=== PATIENT | female | born 1980 | race Caucasian/White ===

== ENCOUNTER 2017-06-25 10:22 | Emergency (ER) | payer BC, OTHER ==
[~2017-06-25] VITALS: Ht 165.1 cm; Wt 72.6 kg
[2017-06-25] MEDS ORDERED: AMOXICILLIN250 MG PO (13:16)
== END 2017-06-25 13:23 | disposition home or self-care (01) ==
LOC: ER 10:22
DX: B00.2 Herpesviral gingivostomatitis and pharyngotonsillitis (principal); F17.210 Nicotine dependence, cigarettes, uncomplicated
CPT/HCPCS: 99282

== ENCOUNTER 2018-03-05 05:51 | Emergency (ER) | payer BC ==
[~2018-03-05] VITALS: Ht 165.1 cm; Wt 68.0 kg
[~2018-03-05 05:51] MED LIST: AMOXICILLIN250 MG PO
[2018-03-05] MEDS ORDERED: FAMOTIDINE 20 MG/2 ML VIAL IV STA (06:12)
[2018-03-05] MEDS ORDERED: ONDANSETRON HCL INJ 2 MG/ML VIAL IV STA (06:12)
[2018-03-05] MEDS ORDERED: SODIUM CHLORIDE 0.9% 1000ML 1,000 ML IV ONE (06:15)
[2018-03-05] MEDS ORDERED: XANAX0.25 MG PO (07:32)
[2018-03-05] MEDS ORDERED: AMBIEN10 MG PO (07:32)
[2018-03-05] MEDS ORDERED: NORCO 10-325 T1 EACH PO (07:32)
[2018-03-05] MEDS ORDERED: METOCLOPRAMIDE HCL 10 MG/2ML VIAL IV ONE (07:45)
--- NOTE | 2018-03-05 09:22 | Diagnostic Imaging Report ---
EXAMINATION: CT of the abdomen and pelvis with contrast. TECHNIQUE: Spiral CT images of the abdomen and pelvis were performed from the lung bases to the lesser trochanters after the intravenous administration of 96 cc of Isovue 300. Coronal and sagittal reformatted images were obtained. Dose reduction parameters were utilized. DLP: 434.81 mGy-cm COMPARISON: None. CLINICAL HISTORY:Nausea and vomiting DISCUSSION: ABDOMEN/PELVIS: LOWER THORAX:Unremarkable. HEPATOBILIARY: There is fatty infiltration of the liver. No focal hepatic lesions. No intra-or extrahepatic biliary ductal dilation. The gallbladder is absent. SPLEEN: No splenomegaly. PANCREAS: No focal masses or ductal dilatation. ADRENALS: No adrenal nodules. KIDNEYS/URETERS: No hydronephrosis, stones or solid mass lesions. PELVIC ORGANS/BLADDER: The bladder is normal. There are pelvic phleboliths. PERITONEUM/RETROPERITONEUM: No free air or fluid. LYMPH NODES: No intra-abdominal, retroperitoneal, pelvic or inguinal lymphadenopathy. VESSELS: The celiac trunk,superior and inferior mesenteric and bilateral renal arteries are patent. The portal, superior mesenteric and splenic veins are patent. GI TRACT: No distention or wall thickening. BONES AND SOFT TISSUE: No bony destructive lesions. Postoperative changes at L5-S1 with a laminectomy, disc spacer and interpedicular screws/rods. No soft tissue abnormalities. IMPRESSION: 1. No acute abdominal or pelvic abnormality. 2. Diffuse hepatic steatosis without focal abnormality. Signed by: Dr. Rashel Chanel DO on 03/05/2018 9:11 AM
[2018-03-05] MEDS ORDERED: ZOFRAN ODT4 MG PO ×2 (09:34→10:44)
[2018-03-05] MEDS ORDERED: PROMETHAZINE 12.5MG/ NACL 0.9% 12.5 MG/50 ML BAG IV ONE (09:45)
[2018-03-05] MEDS ORDERED: PROMETHAZINE HCL (IM) 25 MG/ML VIAL IM ONE (10:00)
[2018-03-05] MEDS ORDERED: SODIUM CHLORIDE 0.9% 1000ML 1,000 ML IV SCH (10:00)
[2018-03-05] MEDS ORDERED: CLONIDINE HCL 0.1 MG TAB PO ONE (10:15)
--- NOTE | 2018-03-05 12:25 | Diagnostic Imaging Report ---
EXAMINATION: Head CT HISTORY: Headache for the last day, nausea and vomiting, hypertension COMPARISON: None. TECHNIQUE: Multidetector axial images were obtained without contrast from the foramen magnum to the vertex . The images were reconstructed using brain and bone algorithms. Thin section brain images were reformatted into coronal and sagittal planes. Intravenous contrast: None. Image quality: Motion/streaking artifact limits the evaluation of the skull base and posterior cranial fossa. Dose modulation, iterative reconstruction, and/or weight based adjustment of the mA/kV was utilized to reduce the radiation dose to as low as reasonably achievable. FINDINGS: Parenchyma: 1. No abnormal densities. 2. No mass or hemorrhage. No CT evidence of acute territorial vascular insult. Extra-axial spaces:No abnormal density. No extra-axial fluid collections Brain sulci: Mildly prominent for age. Ventricles: No hydrocephalus or displacement. Arteries: No density suggestive of thrombus. Dural sinuses: No abnormal density. Extra-axial spaces: No abnormal density. Foramen magnum: No mass, Chiari malformation, or basilar invagination. Sella: No obvious mass. Paranasal/mastoid sinuses: Imaged portions unremarkable. Skull/Scalp: No lytic or blastic lesions. No fractures. IMPRESSION: No acute intracranial abnormalities, particularly no mass, hydrocephalus or hemorrhage. Signed by: Dr. Patricia Ribeiro M.D. on 03/05/2018 12:21 PM
[2018-03-05] MEDS ORDERED: PROMETHAZINE HC25 M1 PO (12:40)
[2018-03-05 13:00] VITALS: BP 118/78
== END 2018-03-05 13:02 | disposition home or self-care (01) ==
LOC: FSED 05:51
DX: R11.2 Nausea with vomiting, unspecified (principal); E87.6 Hypokalemia; K52.9 Noninfective gastroenteritis and colitis, unspecified; D72.829 Elevated white blood cell count, unspecified; I10 Essential (primary) hypertension
CPT/HCPCS: 70450; 74177; 80053; 80076; 81003; 81025; 85025; 96372; 96374; 96375; 99284; J2405; J2550; J2765; J7030

== ENCOUNTER 2020-03-31 06:47 | Emergency (ER) | payer BC, OTHER ==
[~2020-03-31] VITALS: Ht 165.1 cm; Wt 72.6 kg
[~2020-03-31 06:47] MED LIST changes: +AMBIEN10 MG PO; +NORCO 10-325 T1 EACH PO; +PROMETHAZINE HC25 M1 PO; +XANAX0.25 MG PO; +ZOFRAN ODT4 MG PO
[2020-03-31] MEDS ORDERED: KETOROLAC TROMETHAMINE 30 MG/ML VIAL IM STA (07:33)
[2020-03-31] MEDS ORDERED: KETOROLAC TROMETHAMINE 30 MG/ML VIAL ONE (08:17)
--- NOTE | 2020-03-31 08:31 | Diagnostic Imaging Report ---
EXAM: CT Chest WITHOUT intravenous contrast 03/31/2020 7:56 AM INDICATION: Fall COMPARISON: None TECHNIQUE: Chest was scanned utilizing a multidetector helical scanner from the lung apex through the level of the adrenal glands without administration of IV contrast. Coronal and sagittal reformations were obtained. Routine protocol was performed. IV CONTRAST: None RADIATION DOSE: Total DLP: 585 mGy*cm. Dose modulation, iterative reconstruction, and/or weight based adjustment of the mA/kV was utilized to reduce the radiation dose to as low as reasonably achievable. COMPLICATIONS: None FINDINGS: LINES/ TUBES: None. LUNGS AND AIRWAYS: The central airways are patent. No focal consolidation or pulmonary edema. Minimal right and left lower lobe dependent subsegmental atelectasis. No suspicious pulmonary nodules. PLEURA: The pleural spaces are clear. HEART AND MEDIASTINUM: The thyroid gland is normal. No mediastinal, hilar or axillary lymphadenopathy. The heart is normal in size.. There is no pericardial effusion. UPPER ABDOMEN: No acute findings in the upper abdomen. Status post cholecystectomy. BONES: No acute osseous injury. No suspicious lytic or blastic lesions. SOFT TISSUES: Soft tissue irregularity at the right inframammary lateral thoracic soft tissues with associated subcutaneous fat stranding. 7 mm subcutaneous soft tissue nodule overlying the sternum, likely a sebaceous cyst. IMPRESSION: No acute traumatic thoracic injury. Soft tissue irregularity at the right inframammary anterolateral thoracic soft tissues with associated subcutaneous fat stranding. Please correlate with physical exam findings. Signed by: Awais Lee MD on 03/31/2020 8:28 AM
--- NOTE | 2020-03-31 08:33 | Diagnostic Imaging Report ---
Exams: Head and maxillofacial CTs without IV contrast History: Trauma Comparison studies: Head CT 03/05/2018 Technique: Axial images were obtained to the vertex and maxillofacial region. Coronal and sagittal images reconstructed from the axial data. Dose modulation, iterative reconstruction, and/or weight based adjustment of the mA/kV was utilized to reduce the radiation dose to as low as reasonably achievable. Intravenous contrast: None Findings: Scalp: No abnormalities. Bones: No fractures, blastic or lytic lesions. Brain sulci: Appropriate for age. Ventricles: Normal in size and configuration. No hydrocephalus. Parenchyma: Normal no densities. No masses, hemorrhage, acute or chronic vascular insults. Sellar/suprasellar region: No abnormalities Craniocervical junction: Patent foramen magnum. No Chiari one malformation. Maxillofacial CT: Soft tissues: Soft tissue swelling with soft tissue defect consistent with laceration in the anterior chin. No retained hyperdense foreign body. Unchanged incidental focal linear scarring in the right lateral in the right lateral periorbital/anterior previous traumatic soft tissues. Bones: No fractures or bony abnormalities. Orbits: Globes: Intact Extra or intraconal abnormalities: None. Paranasal sinuses: Clear Incidental findings: Right upper lip piercing with [address]. Foreign body in the intradural cavity can be correlated with direct visualization (prior oral tongue piercing with nonmetallic barbel?). IMPRESSION: Head CT: 1. No acute abnormalities 2. No changes from the prior head CT on 02/25/[address]: 1. Midline chin laceration with regional soft tissue swelling. 2. No retained hyperdense foreign body or fracture. Signed by: Dr. René Marte M.D. on 03/31/2020 8:30 AM
[2020-03-31] MEDS ORDERED: TETANUS/DIPHTHERIA TOX ADULT 0.5 ML SYR ONE (08:43)
[2020-03-31] MEDS ORDERED: TETANUS/DIPHTHERIA TOX ADULT 0.5 ML SYR IM ONE (08:45)
--- NOTE | 2020-03-31 09:29 | Emergency Department Note ---
History of Present Illnes History of Present Illness Chief Complaint: General Medicine Complaints History of Present Illness This is a 39 year old female Chief Complaint Comment REPORTS SHE FELL 3 DIFFERENT TIMES SINCE LAST NIGHT. CAN'T REMEMBER FALLS. SAYS SHE HAS A CUT ON HER CHIN (COVERED W/ BANDAID) AND HER STERNUM IS RED BUT SHE CAN'T RECALL IF SHE HIT ANYTHING. TOOK A HYDROCODONE 10/325 FOR HER CHRONIC BACK PAIN @ 0300. [employer] ATIF DROVE HERSELF HERE . Historian: Patient Arrival Mode: Car Onset (how long ago): day(s) (1) Location: head and chest Quality: sharp Radiation: Denies non-radiation, Denies back, Denies neck, Denies extremity, Denies abdomen, Denies periumbilical, Denies flank, Denies proximal, Denies distal, Denies other Severity: moderate Onset quality: gradual Duration (how long): day(s) (1) Timing of current episode: constant Progression: unchanged Chronicity: new Context: Denies recent illness, Denies recent surgery, Denies recent immobilization, Denies recent travel, Denies trauma/injury, Denies new medicatio ns, Denies hx of DVT/PE, Denies non-compliance w/ medications, Denies other Relieving factors: none Exacerbating factors: none Associated symptoms: Reports chest pain, Reports headaches; Denies denies other symptoms, Denies confusion, Denies cough, Denies diaphoresis, Denies fever/chills, Denies loss of appetite, Denies malaise, Denies nausea/vomiting, Denies rash, Denies seizure, Denies shortness of breath, Denies syncope, Denies weakness, Denies other Treatments prior to arrival: none Past Medical/Family History Physician Review I have reviewed the patient's past medical and family history. Any updates have been documented here. Past Medical History Recent Fever: No Clinical Suspicion of Infectio: No New/Unexplained Change in Ment: No Past Medical History: Hypertension, Anxiety, Depression, Chronic Back Pain Past Surgical History: Cholecysctectomy Other Surgery: back sx neck sx HAND SX WRIST SX Social History Smoking Cessation: Current some day smoker Alcohol Use: Occasional Any Illegal Drug Use: No Other Last Tetanus: unknown Any Pre-Existing Lines (PICC,: No Review of Systems Review of Systems Constitutional: Reports as per HPI EENTM: Reports no symptoms Cardiovascular: Reports as per HPI Respiratory: Reports no symptoms Gastrointestinal: Reports no symptoms Genitourinary: Reports no symptoms Musculoskeletal: Reports no symptoms Integumentary: Reports as per HPI Neurological: Reports as per HPI, Reports headache Psychological: Reports no symptoms Endocrine: Reports no symptoms Hematological/Lymphatic: Reports no symptoms Physical Exam Related Data Allergies: Coded Allergies: No Known Allergies (Unverified , 06/25/17) Triage Vital Signs Vital Signs Date Time Temp Pulse Resp B/P (MAP) Pulse Ox O2 Delivery O2 Flow Rate FiO2 03/31/20 07:15 98.0 99 16 136/87 100 Room Air Vital signs reviewed: Yes Physical Exam CONSTITUTIONAL Constitutional: Present well-developed, Present well-nourished HENT HENT: Present normocephalic, Present oropharynx clear/moist, Present nose normal, Present other (chin laceation) HENT L/R: Present left ext ear normal, Present right ext ear normal EYES Eyes: Reports PERRL, Reports conjunctivae normal NECK Neck: Present ROM normal PULMONARY Pulmonary: Present effort normal, Present breath sounds normal CARDIOVASCULAR Cardiovascular: Present regular rhythm, Present heart sounds normal, Present capillary refill normal, Present normal rate, Present other (chest wall tenderness) GASTROINTESTINAL Abdominal: Present soft, Present nontender, Present bowel sounds normal GENITOURINARY Genitourinary: Present exam deferred SKIN Skin: Present warm, Present dry, Present other (chin laceration) MUSCULOSKELETAL Musculoskeletal: Present ROM normal NEUROLOGICAL Neurological: Present alert, Present oriented x 3, Present no gross motor or sensory deficits PSYCHOLOGICAL Psychological: Present mood/affect normal, Present judgement normal Results Laboratory Lab results reviewed: Yes Imaging Imaging results reviewed: Yes Procedures 12 Lead ECG Interpretation ECG Interpretation : ECG: ECG 1 Date: Mar 31, 2020 Time: 08:39 Rhythm: sinus tachycardia Rate: normal BPM: 105 QRS axis: normal ST segments normal: Yes T waves normal: Yes Clinical Impression: abnormal ECG Laceration Laceration: Laceration 1 Site: face Side: left Size (cm): 5 Description: linear Depth: simple, single layer Local anesthesia: lidocaine 1% Amount of anesthesia (mL): 10 Pre-repair: wound exposed Skin layer closed with: nylon Size (cm): 5-0 Number of sutures: 5 Assessment & Plan Medical Decision Making MDM head bleed stenum fx Reassessment Reassessment better pain improved Assessment & Plan Final Impression: (1) Head injury (2) Facial laceration (3) Traumatic injury of chest wall Depart Disposition: HOME, SELF-CARE Last Vital Signs Date Time Temp Pulse Resp B/P (MAP) Pulse Ox O2 Delivery O2 Flow Rate FiO2 03/31/20 07:15 98.0 99 16 136/87 100 Room Air Home Meds Active Scripts Promethazine Hcl (PROMETHAZINE HCL) 25 Mg Tablet, 25 MG PO Q4HR PRN for NAUSEA AND VOMITING, #12 TAB Prov:GRECIA JOSEPH MD 03/05/18 Reported Medications Alprazolam (XANAX) 0.25 Mg Tablet, 1 TAB PO PRN PRN for ANXIETY 03/05/18 Zolpidem Tartrate (AMBIEN) 10 Mg Tablet, 10 MG PO HS PRN for PAIN, #30 TAB 03/05/18 Hydrocodone Bit/Acetaminophen (NORCO 10-325 TABLET) 1 Each Tablet, 1 TAB PO PRN PRN for PAIN 03/05/18 Amoxicillin (AMOXICILLIN) 250 Mg Capsule, 500 MG PO BID for 10 Days, #30 CAP 06/25/17 Medications in the ED Ketorolac Tromethamine 30 mg ONCE STAT IM Last administered on 03/31/20at 08:10; Admin Dose 30 MG; Start 03/31/20 at 07:33; Stop 03/31/20 at 07:40; Status DC Ketorolac Tromethamine 30 mg STK-MED ONCE .ROUTE ; Start 03/31/20 at 08:17; Stop 03/31/20 at 08:13; Status DC Tetanus/ Diphtheria Toxoids 0.5 ml ONCE ONCE IM Last administered on 03/31/20at 08:50; Admin Dose 0.5 ML; Start 03/31/20 at 08:45; Stop 03/31/20 at 08:46; Status DC Tetanus/ Diphtheria Toxoids 0.5 ml STK-MED ONCE .ROUTE ; Start 03/31/20 at 08:43; Stop 03/31/20 at 08:38; Status DC BÁRBARA BUSTILLOS MD Mar 31, 2020 09:29
[2020-03-31] MEDS ORDERED: CYCLOBENZAPRINE5 MG PO (09:38)
[2020-03-31] MEDS ORDERED: KEFLEX500 MG PO (09:38)
== END 2020-03-31 09:50 | disposition home or self-care (01) ==
LOC: FSED 07:37
DX: S01.81XA Laceration without foreign body of other part of head, initial encounter (principal); W18.30XA Fall on same level, unspecified, initial encounter; R94.31 Abnormal electrocardiogram [ECG] [EKG]; I10 Essential (primary) hypertension; F41.9 Anxiety disorder, unspecified; M54.9 Dorsalgia, unspecified; G89.29 Other chronic pain; F17.200 Nicotine dependence, unspecified, uncomplicated
CPT/HCPCS: 12013; 70450; 70486; 71250; 80053; 85025; 90471; 90714; 93005; 99284; J1885

== ENCOUNTER 2020-03-31 15:10 | Observation (INO) | payer OTHER ==
[~2020-03-31] VITALS: Ht 165.1 cm; Wt 72.6 kg
[~2020-03-31 15:10] MED LIST changes: +CYCLOBENZAPRINE5 MG PO; +KEFLEX500 MG PO
[2020-03-31] MEDS ORDERED: PANTOPRAZOLE 40 MG 10ML VIAL IV STA (16:00)
[2020-03-31] MEDS ORDERED: SODIUM CHLORIDE 0.9% 1000ML 1,000 ML IV STA ×2 (16:00→17:22)
[2020-03-31 16:11] LABS: BASOPHILS # (AUTO) 0.1 (0.0-0.1); BASOPHILS % 0.5 % (0.0-1.0); EOSINOPHILS # (AUTO) 0.1 (0.0-0.4); HEMATOCRIT 38.3 % (34.2-44.1); LYMPHOCYTES # (AUTO) 3.7 (1.0-3.2); LYMPHOCYTES % 36.2 % (18.0-39.1); MEAN CORPUSCULAR HEMOGLOBIN 31.9 pg (28-32); MEAN CORPUSCULAR HGB CONC 33.9 g/dL (31-35); MEAN CORPUSCULAR VOLUME 94.1 fL (81-99); NEUTROPHILS # (AUTO) 5.3 (2.1-6.9); PLATELET COUNT 409 x10e3/uL (140-360); RED BLOOD COUNT 4.07 x10e6/uL (3.6-5.1)
[2020-03-31 16:26] LABS: INR 0.93; PROTHROMBIN TIME 12.9 seconds (11.9-14.5)
[2020-03-31 16:27] LABS: PARTIAL THROMBOPLASTIN TIME 27.4 seconds (23.8-35.5)
[2020-03-31 16:37] LABS: ALBUMIN 4.9 g/dL (3.5-5.0); ALBUMIN/GLOBULIN RATIO 1.3 (0.8-2.0); CREATININE, SERUM 1.28 mg/dL (0.57-1.11); MAGNESIUM 1.4 MG/DL (1.3-2.1)
[2020-03-31 16:52] LABS: SALICYLATE < 5.0 mg/dL (0-30)
[2020-03-31 17:12] LABS: BILIRUBIN,URINE SMALL (NEGATIVE); CLARITY,URINE SL CLOUDY (CLEAR); COLOR,URINE YELLOW (YELLOW); KETONES,URINE TRACE (NEGATIVE); LEUKOCYTE ESTERASE ,URINE NEGATIVE (NEGATIVE); NITRITE,URINE NEGATIVE (NEGATIVE); PROTEIN,URINE DIPSTICK TRACE (NEGATIVE); URINE UROBILINOGEN 0.2 mg/dL (0.2 - 1)
[2020-03-31 17:13] LABS: AMPHETAMINES SCREEN,URINE POSITIVE (NEGATIVE); BENZODIAZEPINES SCREEN,URINE POSITIVE (NEGATIVE); PHENCYCLIDINE SCREEN,URINE NEGATIVE (NEGATIVE)
[2020-03-31 17:21] LABS: BACTERIA,URINE RARE /HPF; EPITHELIAL CELLS,URINE FEW /LPF; MUCUS,URINE FEW (RARE); RBC,URINE 0-5 /HPF (0-5); WBC,URINE (MAN) 0-5 /HPF (0-5)
[2020-03-31] MEDS ORDERED: KETOROLAC TROMETHAMINE 30 MG/ML VIAL IV STA (17:22)
[2020-03-31] MEDS ORDERED: POTASSIUM CHLORIDE 20 MEQ TAB CR PO STA (17:43)
[2020-03-31] MEDS ORDERED: ACETAMINOPHEN 325 MG TAB PO PRN (18:30)
--- NOTE | 2020-03-31 18:47 | Emergency Department Note ---
History of Present Illnes History of Present Illness Chief Complaint: Neurological History of Present Illness This is a 39 year old female Patient in from home with complaints of dizzy spells and "passing out" that happens randomly over the last 4 months. Patient spoke to Dr. Chow and he suggested she come to the ER to be evaluated. Patient states that she has episodes where she remembers doing something and then "wakes up on the floor". Patient states she had an episode of this today in the morning and fell and split her chin open. She was seen at the [facility] and received stitches in her chin. A CT scan was done there and it showed "inflammation in her chest".. Historian: Patient Arrival Mode: Car Staff Counsel Required: No Severity: moderate Onset quality: sudden Timing of current episode: intermittent (MULTIPLE EPISODES OF SYNCOPE) Chronicity: recurrent Context: Denies recent illness Relieving factors: none Exacerbating factors: none Associated symptoms: Reports denies other symptoms Past Medical/Family History Physician Review I have reviewed the patient's past medical and family history. Any updates have been documented here. Past Medical History Recent Fever: No Clinical Suspicion of Infectio: No New/Unexplained Change in Ment: No Past Medical History: Hypertension, Anxiety, Depression, Chronic Back Pain Past Surgical History: Back Surgery Other Surgery: Breast Augmentation Back surgery Neck surgery Social History Smoking Cessation: Current some day smoker Counseling Performed: No Alcohol Use: Social Any Illegal Drug Use: No TB Exposure/Symptoms: No Physically hurt or threatened: No Family History Family history of heart diseas: No Other Last Tetanus: unknown Any Pre-Existing Lines (PICC,: No Review of Systems Review of Systems Constitutional: Reports as per HPI EENTM: Reports as per HPI Cardiovascular: Reports as per HPI, Reports syncope Respiratory: Reports no symptoms Gastrointestinal: Reports no symptoms Genitourinary: Reports no symptoms Musculoskeletal: Reports no symptoms Integumentary: Reports no symptoms Neurological: Reports no symptoms Psychological: Reports no symptoms Endocrine: Reports no symptoms Hematological/Lymphatic: Reports no symptoms Physical Exam Related Data Allergies: Coded Allergies: No Known Allergies (Unverified , 06/25/17) Triage Vital Signs Vital Signs Date Time Temp Pulse Resp B/P (MAP) Pulse Ox O2 Delivery O2 Flow Rate FiO2 03/31/20 15:41 98.7 134 19 126/77 100 Room Air Vital signs reviewed: Yes Physical Exam CONSTITUTIONAL Constitutional: Present well-developed, Present well-nourished HENT HENT: Present normocephalic, Present oropharynx clear/moist, Present nose norm al, Present other (SUTURED LACERATION OF CHIN) HENT L/R: Present left ext ear normal, Present right ext ear normal EYES Eyes: Reports PERRL, Reports conjunctivae normal NECK Neck: Present ROM normal PULMONARY Pulmonary: Present effort normal, Present breath sounds normal CARDIOVASCULAR Cardiovascular: Present regular rhythm, Present heart sounds normal, Present capillary refill normal, Present tachycardia, Present other (ANTERIOR CHEST WALL TENDERNESS, ECCHYMOSIS) GASTROINTESTINAL Abdominal: Present soft, Present nontender, Present bowel sounds normal GENITOURINARY Genitourinary: Present exam deferred SKIN Skin: Present warm, Present dry MUSCULOSKELETAL Musculoskeletal: Present ROM normal NEUROLOGICAL Neurological: Present alert, Present oriented x 3, Present no gross motor or sensory deficits PSYCHOLOGICAL Psychological: Present mood/affect normal, Present judgement normal Results Laboratory Result Diagram: 03/31/20 1602 03/31/20 1602 Laboratory Laboratory Tests Test 03/31/20 16:02 White Blood Count 10.26 x10e3/uL (4.8-10.8) Red Blood Count 4.07 x10e6/uL (3.6-5.1) Hemoglobin 13.0 g/dL (12.0-16.0) Hematocrit 38.3 % (34.2-44.1) Mean Corpuscular Volume 94.1 fL (81-99) Mean Corpuscular Hemoglobin 31.9 pg (28-32) Mean Corpuscular Hemoglobin Concent 33.9 g/dL (31-35) Red Cell Distribution Width 12.0 % (11.7-14.4) Platelet Count 409 x10e3/uL (140-360) Neutrophils (%) (Auto) 52.0 % (38.7-80.0) Lymphocytes (%) (Auto) 36.2 % (18.0-39.1) Monocytes (%) (Auto) 10.0 % (4.4-11.3) Eosinophils (%) (Auto) 1.0 % (0.0-6.0) Basophils (%) (Auto) 0.5 % (0.0-1.0) Neutrophils # (Auto) 5.3 (2.1-6.9) Lymphocytes # (Auto) 3.7 (1.0-3.2) Monocytes # (Auto) 1.0 (0.2-0.8) Eosinophils # (Auto) 0.1 (0.0-0.4) Basophils # (Auto) 0.1 (0.0-0.1) Absolute Immature Granulocyte (auto 0.03 x10e3/uL (0-0.1) Prothrombin Time 12.9 seconds (11.9-14.5) Prothromb Time International Ratio 0.93 Activated Partial Thromboplast Time 27.4 seconds (23.8-35.5) D-Dimer Quantitative (PE/DVT) 0.53 ug/mLFEU (0.00-0.45) Urine Color Yellow (YELLOW) Urine Clarity Sl cloudy (CLEAR) Urine pH 5.5 (5 - 7) Urine Specific [place] 1.025 (1.010-1.025) Urine Protein Trace (NEGATIVE) Urine Glucose (UA) Negative (NEGATIVE) Urine Ketones Trace (NEGATIVE) Urine Blood Negative (NEGATIVE) Urine Nitrite Negative (NEGATIVE) Urine Bilirubin Small (NEGATIVE) Urine Urobilinogen 0.2 mg/dL (0.2 - 1) Urine Leukocyte Esterase Negative (NEGATIVE) Urine RBC 0-5 /HPF (0-5) Urine WBC 0-5 /HPF (0-5) Urine Epithelial Cells Few /LPF (NONE) Urine Bacteria Rare /HPF (NONE) Urine Hyaline Casts 2-5 (0-1) Urine Mucus Few (RARE) Sodium Level 140 mmol/L (136-145) Potassium Level 3.0 mmol/L (3.5-5.1) Chloride Level 103 mmol/L (98-107) Carbon Dioxide Level 20 mmol/L (22-29) Anion Gap 20.0 mmol/L (8-16) Blood Urea Nitrogen 14 mg/dL (7-26) Creatinine 1.28 mg/dL (0.57-1.11) Estimat Glomerular Filtration Rate 47 ML/MIN (60-) BUN/Creatinine Ratio 11 (6-25) Glucose Level 98 mg/dL (74-118) Calcium Level 9.0 mg/dL (8.4-10.2) Magnesium Level 1.4 MG/DL (1.3-2.1) Total Bilirubin 0.5 mg/dL (0.2-1.2) Aspartate Amino Transf (AST/SGOT) 20 IU/L (5-34) Alanine Aminotransferase (ALT/SGPT) 13 IU/L (0-55) Alkaline Phosphatase 130 IU/L (40-150) Creatine Kinase 96 IU/L (29-168) Creatine Kinase MB 2.00 ng/mL (0-5.0) Troponin I 0.007 ng/mL (0-0.300) Total Protein 8.7 g/dL (6.5-8.1) Albumin 4.9 g/dL (3.5-5.0) Globulin 3.8 g/dL (2.3-3.5) Albumin/Globulin Ratio 1.3 (0.8-2.0) Human Chorionic Gonadotropin, Qual Negative (NEGATIVE) Salicylates Level < 5.0 mg/dL (0-30) Urine Opiates Screen Positive (NEGATIVE) Urine Methadone Screen Negative (NEGATIVE) Acetaminophen Level < 3.0 ug/mL (10-30) Urine Barbiturates Screen Negative (NEGATIVE) Urine Phencyclidine Screen Negative (NEGATIVE) Urine Amphetamines Screen Positive (NEGATIVE) Urine Methamphetamines Screen Positive (NEGATIVE) Urine Benzodiazepines Screen Positive (NEGATIVE) Urine Cocaine Screen Negative (NEGATIVE) Urine Cannabinoids Screen Negative (NEGATIVE) Ethyl Alcohol Level 98.9 mg/dL (0.0-10.0) Lab results reviewed: Yes Imaging Imaging results reviewed: Yes Imaging Comments CT BRAIN, FACE, CHEST DONE THIS AM AT OUR [facility] Procedures 12 Lead ECG Interpretation ECG Interpretation : ECG: ECG 1 Staff Counsel: Interpreted by ED physician Date: Mar 31, 2020 Time: 15:47 Rhythm: sinus tachycardia Rate: tachycardia BPM: 126 QRS axis: normal ST segments normal: Yes T waves normal: Yes Clinical Impression: abnormal ECG Assessment & Plan Medical Decision Making MDM MULTIPLE EPISODES OF SYNCOPE IN A 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 SHE IS TACHYCARDIC ~130 - CHECK CBC, CHEM, ECG, CARDIACS, D-DIMER, PREG, UA, UDS, ETOH, TYL LEVEL - EVAL ANEMIA, DYSRHYTHMIA, STEMI/NSTEMI, PULM EMBOLUS, DRUG INGESTION, ETOH INTOX OR WITHDRAWAL Reassessment Reassessment PER DR CHOW - ADMIT OBS TELE. D-DIMER SLIGHTLY ELEVATED - CT CHEST PE PROTOCOL PENDING - DR Shima CEDILLO TO F/U RESULTS Assessment & Plan Final Impression: (1) Syncope (2) Overuse of medication (3) Intoxication (4) Traumatic injury of chest wall (5) Facial laceration Depart Disposition: ADMITTED Last Vital Signs Date Time Temp Pulse Resp B/P (MAP) Pulse Ox O2 Delivery O2 Flow Rate FiO2 03/31/20 18:17 104 12 144/85 100 Room Air 03/31/20 17:17 98.6 Home Meds Active Scripts Cyclobenzaprine Hcl (FLEXERIL) 5 Mg Tablet, 10 MG PO Q8H PRN for PAIN, #15 TAB 0 Refills Prov:BÁRBARA BUSTILLOS MD 03/31/20 Cephalexin Monohydrate (KEFLEX) 500 Mg Capsule, 1 TAB PO Q6H, #28 TAB 0 Refills Prov:BÁRBARA BUSTILLOS MD 03/31/20 Promethazine Hcl (PROMETHAZINE HCL) 25 Mg Tablet, 25 MG PO Q4HR PRN for NAUSEA AND VOMITING, #12 TAB Prov:GRECIA JOSEPH MD 03/05/18 Reported Medications Alprazolam (XANAX) 0.25 Mg Tablet, 1 TAB PO PRN PRN for ANXIETY 03/05/18 Zolpidem Tartrate (AMBIEN) 10 Mg Tablet, 10 MG PO HS PRN for PAIN, #30 TAB 03/05/18 Hydrocodone Bit/Acetaminophen (NORCO 10-325 TABLET) 1 Each Tablet, 1 TAB PO PRN PRN for PAIN 03/05/18 Amoxicillin (AMOXICILLIN) 250 Mg Capsule, 500 MG PO BID for 10 Days, #30 CAP 06/25/17 Medications in the ED Pantoprazole Sodium 40 mg ONCE STAT IV Last administered on 03/31/20at 17:38; Admin Dose 40 MG; Start 03/31/20 at 16:00; Stop 03/31/20 at 16:07; Status DC Sodium Chloride 1,000 ml @ 0 mls/hr Q0M STAT IV Last administered on 03/31/20at 17:38; Admin Dose 999 MLS/HR; Start 03/31/20 at 16:00; Stop 03/31/20 at 16:02; Status DC Ketorolac Tromethamine 30 mg ONCE STAT IV Last administered on 03/31/20at 17:38; Admin Dose 30 MG; Start 03/31/20 at 17:22; Stop 03/31/20 at 17:26; Status DC Sodium Chloride 1,000 ml @ 0 mls/hr Q0M STAT IV Last administered on 03/31/20at 17:38; Admin Dose 999 MLS/HR; Start 03/31/20 at 17:22; Stop 03/31/20 at 17:23; Status DC Potassium Chloride 40 meq NOW STAT PO Last administered on 03/31/20at 18:16; Admin Dose 40 MEQ; Start 03/31/20 at 17:43; Stop 03/31/20 at 17:50; Status DC Acetaminophen 650 mg Q4H PRN PO Mild Pain (1-3) or Fever>100.8; Start 03/31/20 at 18:30; Stop 04/30/20 at 18:29 FLOYD SHARP MD Mar 31, 2020 18:47
[2020-03-31] MEDS ORDERED: ONDANSETRON HCL INJ 2MG/ML 2ML 2 MG/ML VIAL IV PRN (19:00)
[2020-03-31] MEDS ORDERED: MULTIVITAMINS- 12 INJECTION 10 ML, FOLIC ACID MDV 5 MG, THIAMINE HCL INJ 100 MG in SODI... IV ONE (19:00)
[2020-03-31] MEDS ORDERED: FAMOTIDINE 20 MG/2 ML VIAL IV SCH (19:00)
[2020-03-31] MEDS ORDERED: LORAZEPAM INJ 2 MG/ML VIAL IV PRN (19:00)
[2020-03-31] MEDS: HYDROCODONE/APAP 10MG-325MG TAB PO PRN ×2 (19:04→23:12)
[2020-03-31] MEDS ORDERED: IOPAMIDOL 370 MG/ML 200 ML INFUS..BTL INJ ONE (19:17)
[2020-03-31] MEDS ORDERED: SODIUM CHLORIDE 0.9% 50ML 50 ML ONE (19:17)
--- NOTE | 2020-03-31 20:12 | Diagnostic Imaging Report ---
EXAM: CT Chest WITH contrast 03/31/2020 6:30 PM INDICATION: Shortness of breath and chest pain suspicious for pulmonary embolism. COMPARISON: Same day chest CT. TECHNIQUE: Chest was scanned utilizing a multidetector helical scanner from the lung apex through the level of the adrenal glands with administration of IV contrast. Coronal and sagittal reformations were obtained. Routine protocol was performed. IV CONTRAST: 100 mL of Omnipaque 300 COMPLICATIONS: None RADIATION DOSE: Total DLP: 534.13 mGy*cm Estimated effective dose: (DLP x 0.014 x size factor) mSv CTDIvol has been reviewed. It is below the limits set by the Radiation Protocol Committee (RPC). Dose modulation, iterative reconstruction, and/or weight based adjustment of the mA/kV was utilized to reduce the radiation dose to as low as reasonably achievable. FINDINGS: VASCULAR: There are no filling defects in the pulmonary arteries to the segmental level. The pulmonary trunk has normal caliber measuring 2.3 cm. Ascending and descending aorta have normal caliber and enhancement measuring 2.7 cm and 2.1 cm, respectively. LINES/ TUBES: None. LUNGS AND AIRWAYS: The lungs are unremarkable. Airways are normal. PLEURA: The pleural spaces are clear. HEART AND MEDIASTINUM: The thyroid gland is normal. No mediastinal, hilar or axillary lymphadenopathy. The heart is normal in size. There is no pericardial effusion. UPPER ABDOMEN: Unremarkable. BONES: The visualized bony thorax is within normal limits. Partially imaged cervical spine hardware is intact. SOFT TISSUES: Subcutaneous emphysema and fat stranding in the inferior right breast series 2 image 105). There is also very superficial subcutaneous emphysema in the inferior left breast (series 2 image 100). IMPRESSION: 1. No evidence of pulmonary embolism to the segmental levels. 2. Subcutaneous emphysema and fat stranding in the inferior aspect of both breasts. Correlate clinically. Signed by: Checo Rodriguez MD on 03/31/2020 8:09 PM
[2020-04-01 00:58] LABS: CREATINE KINASE MB 1.4 ng/mL (0-5.0)
[2020-04-01] MEDS: HYDROCODONE/APAP 10MG-325MG TAB PO PRN ×3 (04:49→13:21)
[2020-04-01 05:58] LABS: BASOPHILS % 0.5 % (0.0-1.0); EOSINOPHILS # (AUTO) 0.2 (0.0-0.4); EOSINOPHILS % 2.6 % (0.0-6.0); HEMATOCRIT 32.2 % (34.2-44.1); HEMOGLOBIN 10.6 g/dL (12.0-16.0); LYMPHOCYTES # (AUTO) 2.8 (1.0-3.2); LYMPHOCYTES % 47.4 % (18.0-39.1); MEAN CORPUSCULAR HEMOGLOBIN 32.8 pg (28-32); MEAN CORPUSCULAR HGB CONC 32.9 g/dL (31-35); MEAN CORPUSCULAR VOLUME 99.7 fL (81-99); MONOCYTES # (AUTO) 0.6 (0.2-0.8); MONOCYTES % 10.4 % (4.4-11.3); NEUTROPHILS # (AUTO) 2.3 (2.1-6.9); NEUTROPHILS % 38.9 % (38.7-80.0); PLATELET COUNT 267 x10e3/uL (140-360); RED BLOOD COUNT 3.23 x10e6/uL (3.6-5.1); RED CELL DISTRIBUTION WIDTH 12.1 % (11.7-14.4)
[2020-04-01 06:20] LABS: CREATINE KINASE MB 1.3 ng/mL (0-5.0)
[2020-04-01 06:36] LABS: ALANINE AMINOTRANSFERASE 9 IU/L (0-55); ALBUMIN 3.7 g/dL (3.5-5.0); ALBUMIN/GLOBULIN RATIO 1.4 (0.8-2.0); ALKALINE PHOSPHATASE 100 IU/L (40-150); ANION GAP 11.6 mmol/L (8-16); BLOOD UREA NITROGEN 10 mg/dL (7-26); BUN/CREATININE RATIO 14 (6-25); CARBON DIOXIDE 19 mmol/L (22-29); CHLORIDE 112 mmol/L (98-107); CHOL/HDL RATIO 3.1 (3.0-3.6); CHOLESTEROL 116 MD/DL (0-199); CREATININE, SERUM 0.69 mg/dL (0.57-1.11); EST GLOMERULAR FILTRATION RATE > 60 ML/MIN (60-); GLUCOSE 104 mg/dL (74-118); HDL CHOLESTEROL 38 MG/DL (40-60); LDL CHOLESTEROL 47 MG/DL (60-130); POTASSIUM 3.6 mmol/L (3.5-5.1); SODIUM 139 mmol/L (136-145); TRIGLYCERIDES 156 MG/DL (0-149)
--- NOTE | 2020-04-01 06:42 | NUR ---
H&P cc: passing out multiple times HPI: 39yoF, my clinic pt, who has been managed by pain specialist with combination therapy for chronic back pain management, in addition to local shots to the back. She has battled with alcoholism, and now presented to the urgent care for multiple syncopal episodes; Now here for recurrence of syncopal episodes; Alcohol level found to be 98.9, and patient is positive for opiods, methamphetamine, and BZD. PMH 1.KENNETH 2.Chronic back pain 3.CHronic pain syndrome 4.Nicotine Dependence in remission 5.Overweight 6.L5-S1 disc disease/pain 7.insomnia 8.Essential Tremors 9.Alcohol user 10.HTN 11.Fatigue/Malaise 12. BMI 27 RESOLVED Pyelonephritis March 2016- RESOLVED RSOLVED skin rash 03/2018 RESOLVED RESOLVED.UTI- RESOLVED RESOLVED Acute pyelonephritis- RESOLVED RESOLVED Dysuria RESOLVED Surgical History: wrist, Cholecystectomy, s/p L5-S1 disc surgery with placement of plate/screws, s/p Cervical disc surgery with placement of screws. ALlergies; see emr FH/SH; denies illicits; does drink undisclosed amount of alcohol; admits to Binge drinking Meds; see MAR ROS: no f/c/s/N/V/D/DUMONT/skin rash/confusion/leg pain/vision changes/leg pain/leg weakness v/s revd PE tired appearing anicteric; check with sutures ns1s2 mod bs soft nt nd no e/t skin dry n. affect a&ox3; harris labs/meds revd A/P: Syncope- check echo and carotids; check orthostatic V/S. Alcoholism- further counseling; for resources and AA Methamphetamine use- grief counsellor on cessation HypoKalemia- replace Dehydration- rehydrate ALIDA- IVF KENNETH- on meds; prop: scd Dispo; start folic acid/thiamine; Check Echo/Carotids/Orthostatic V/S. If all negative, will d/c home with assistance for support. KARI CHOW MD, PHD.
--- NOTE | 2020-04-01 06:42 | NUR ---
PER DR. Gary CHOW, NEW ORDER RECEIVED FOR ECHO, CAROTID U/S, AND ORTHOSTATIC V/S
--- NOTE | 2020-04-01 06:44 | NUR ---
[facility] INFORMED OF NEED FOR CAROTID DOPPLER AND ECHO
[2020-04-01] MEDS ORDERED: SODIUM CHLORIDE 0.9% 1000ML 1,000 ML IV SCH (06:45)
--- NOTE | 2020-04-01 06:49 | NUR ---
handoff report received from Davion Oshea RN
--- NOTE | 2020-04-01 07:00 | NUR ---
Sono Tech at bedside
--- NOTE | 2020-04-01 08:01 | NUR ---
Adjunct Philosophy Faculty at bedside
[2020-04-01] MEDS ORDERED: MULTIVITAMINS/MINERALS TAB PO SCH (09:00)
[2020-04-01] MEDS ORDERED: FOLIC ACID 1 MG TAB PO SCH (09:00)
[2020-04-01] MEDS ORDERED: THIAMINE HCL 100 MG TAB PO SCH (09:00)
--- NOTE | 2020-04-01 12:35 | NUR ---
Dr. Sandra notified that there was no blindstitch lining feller assigned to read the Echocardiogram and Carotid Dopplers, order given to Dr. Moran and Dr. Moran was paged at this time
--- NOTE | 2020-04-01 12:42 | NUR ---
Dr. Sanchez covering for Dr. Moran, states that he will read echocardiogram and carotid dopplers
[2020-04-01 13:00] LABS: CREATINE KINASE MB 1.3 ng/mL (0-5.0)
--- NOTE | 2020-04-01 15:21 | NUR ---
PT TO AWAIT RESULTS OF ECHO, IF ECHO IS WNL, DR CHOW WILL DC PATIENT HOME OUT OF ER, WILL HOLD TRANSFER UP TO FLOOR, SAMEER CHARGE NOTIFIED, AND DR. JEFFERY (ER MD) ALSO NOTIFIED OF DECISION TO WAIT TRANSFER TO FLOOR FOR POSS DC HOME.
--- NOTE | 2020-04-02 06:48 | NUR ---
D/C Summary Patient LEFT AMA Details of care: Syncope- check echo and carotids; check orthostatic V/S. Alcoholism- further counseling; SW for resources and AA Methamphetamine use- school guidance counselor on cessation HypoKalemia- replace Dehydration- rehydrate ALIDA- IVF KENNETH- on meds; prop: scd Dispo; start folic acid/thiamine; Check Echo/Carotids/Orthostatic V/S. If all negative, will d/c home with assistance for support. KARI CHOW MD, PHD.
--- OUTSIDE RECORDS SUMMARY | 2020-04-04 15:41 | XMS REPORT | Continuity of Care Document ---
Author Author Yvon Gobler [employer] SIMON Sloan [employer] Address Unknown Phone Unavailable Care Team Providers Care Geomorphology Teacher Name Role Phone [employer] Unavailable Un available Problems No Data Provided for This Section Medications No Data Provided for This Section Allergies, Adverse Reactions, Alerts No Known Medication Allergies Immunizations No Data Provided for This Section Results No Data Provided for This Section Pathology Reports No Data Provided for This Section Diagnostic Reports No Data Provided for This Section Consultation Notes No Data Provided for This Section Discharge Summaries No Data Provided for This Section History and Physicals No Data Provided for This Section Vital Signs No Data Provided for This Section Encounters Location Location Details Encounter Type Encounter Number Reason For Visit Attending Provider ADM Date DC Date Status Source Outpatient [id number] ELVA GEORGE 04/04/2018 Active [facility] [id number] ELVA GEORGE 05/09/2018 Active [facility] Procedures No Data Provided for This Section Assessment and Plan No Data Provided for This Section Plan of Care No Data Provided for This Section Social History No Data Provided for This Section Family History No Data Provided for This Section Advance Directives No Data Provided for This Section Functional Status No Data Provided for This Section
--- OUTSIDE RECORDS SUMMARY | 2020-04-04 15:42 | XMS REPORT | Continuity of Care Document ---
Author Author Formerly [facility] t Organization [facility] Address [address] [place] [address] Phone Unavailable Care Team Providers Care Cst Name Role Phone CLAUDINE DOE, MD PIERCE PCP CARLOS SANDRA Attphys Unavailable KOUSSBÁRBARA HWANG Attphys Unavailable DUCHAMP, A GRECIA Attphys Unavailable CARLOS SANDRA Admphyjudd Unavailable Payers Payer Name Policy Type Policy Number Effective Date Expiration Date Judd vance [facility] [id number] 2019 00:00:00 [facility] [id number] 2019 00:00:00 [facility] Ppo [id number] 2015 00:00:00 [facility] Problems Condition Name Condition Details Condition Category Status Onset Date Resolution Date Last Treatment Date Treating Clinician Comments Source 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 [facility] Injury of head Problem Active [facility] Facial laceration Problem Active [facility] Traumatic injury of chest wall Problem Active [facility] Syncope Problem Active [facility] Overuse of medication Problem Active [facility] Intoxication Problem Active [facility] Allergies, Adverse Reactions, Alerts Allergy Name Allergy Type Status Severity Reaction(s) Onset Date Inacti ve Date Treating Clinician Comments Source No Known Allergies DA Active U 2020-01-30 00:00:00 [facility] No Known Intolerances DA Active U 2010-03-21 00:00:00 [facility] Social History Social Habit Start Date Stop Date Quantity Comments Source Sex Assigned At 1980 00:00:00 1980 00:00:00 Female [facility] Medications Ordered Medication Name Filled Medication Name Start Date Stop Da te Current Medication? Ordering Clinician Indication Dosage Frequency Signature (SIG) Comments Components Source Cephalexin Monohydrate (Keflex) 500 Mg CAPSULE Cephale matt Monohydrate (Keflex) 500 Mg CAPSULE 2020-03-31 09:38:00 Yes 1 Every 6 H ours [facility] Cyclobenzaprine Hcl (Flexeril) 5 Mg TABLET Cyclobenzap rine Hcl (Flexeril) 5 Mg TABLET 2020-03-31 09:38:00 Yes 10 Every 8 Hours as needed for Pain [facility] Promethazine Hcl Promethazine Hcl 2018-03-05 12:40:00 Yes 25 Every 4 Hours as needed for Nausea And Vomiting [facility] Alprazolam (Xanax) 0.25 Mg TABLET Alprazolam (Xanax) 0.25 Mg TABLET Yes 1 As Needed as needed for Anxiety [facility] Amoxicillin Amoxicillin Yes 500 Twice A Day [facility] Hydrocodone Bit/Acetaminophen (Pound 10-325 Tablet) 1 Each TABLET Hydrocodone Bit/Acetaminophen (Pound 10-325 Tablet) 1 Each TABLET Yes 1 As Needed as needed for Pain [facility] Zolpidem Tartrate (Ambien) 10 Mg TABLET Zolpidem Tartrate (A mbien) 10 Mg TABLET Yes 10 Bedtime as needed for Pain [facility] Vital Signs Vital Name Observation Time Observation Value Comments Source Weight 2020-03-31 15:41:00 160 [lb_av] [facility] BMI (Body Mass Index) 2020-03-31 15:41:00 26.6 kg/m2 [facility] Weight 2020-03-31 07:15:00 160 [lb_av] [facility] BMI (Body Mass Index) 2020-03-31 07:15:00 26.6 kg/m2 [facility] Procedures Procedure Date / Time Performed Performing Clinician Sour e Computed tomography of chest with contrast 2020-03-31 00:00:00 [facility] Encounters Start Date/Time End Date/Time Encounter Type Admission Type Attendi [facility] Facility Care Department Encounter ID Source 2020-03-31 18:52:00 2020-03-31 18:52:00 Admitted Inpatient (obs) 1 CLAUDINEYOUSIFVE [facility] [id number] [facility] 2020-03-31 07:37:00 2020-03-31 09:50:00 Departed Emergency Room 1 BÁRBARA BUSTILLOS [facility] [id number] [facility] 2018-03-05 05:51:00 2018-03-05 13:02:00 Departed Emergency Room 1 GRECIA JOSEPH [facility] [id number] [facility] 2017-06-25 10:22:00 2017-06-25 13:23:00 Departed Emergency Room [facility] [id number] [facility] Results Test Description Test Time Test Comments Results Result Comments Source Serum or plasma creatine kinase measurement (enzymatic activity/volume) 2020-04-01 12:28:00 Test Item Creatine Kinase (test code = 2157-6) 62 29-168 [facility] creatine kinase MB measurement (mass/volume)2020-04-01 12:28:00* Test Item Value Reference Range Interpretation Comments Creatine Kinase MB (test code = 86058-3) 1.30 0-5.0 [facility] TempleTrop[facility] I measurement by highly sensitive enzyme pwmiptjscye5950-53-22 12:28:00* Test Item Value Reference Range Interpretation Comments Troponin I (test code = 84943-7) 0.001 0-0.300 [facility] leukocytes automated count (number/volume)2020-04-01 05:30:00* Test Item Value Reference Range Interpretation Comments White Blood Count (test code = 6690-2) 5.88 4.8-10.8 [facility] erythrocytes automated count (number/volume)2020-04-01 05:30:00* Test Item Value Reference Range Interpretation Comments Red Blood Count (test code = 789-8) 3.23 3.6-5.1 [facility] (moles/volume)2020-04-01 05:30:00* Test Item Value Reference Range Interpretation Comments Hemoglobin (test code = 52369-4) 10.6 12.0-16.0 [facility] hematocrit (volume fraction)2020-04-01 05:30:00* Test Item Value Reference Range Interpretation Comments Hematocrit (test code = 4544-3) 32.2 34.2-44.1 [facility] TempleAutomated erythrocyte mean corpuscular [id number] 05:30:00* Test Item Value Reference Range Interpretation Comments Mean Corpuscular Volume (test code = 787-2) 99.7 81-99 [facility] Temple[facility] erythrocyte mean corpuscular hemoglobin (mass per erythrocyte)2020-04-01 05:30:00* Test Item Value Reference Range Interpretation Comments Mean Corpuscular Hemoglobin (test code = 785-6) 32.8 28-32 [facility] Temple[facility] erythrocyte mean corpuscular hemoglobin concentration measurement (mass/volume)2020-04-01 05:30:00* Test Item Value Reference Range Interpretation Comments Mean Corpuscular Hemoglobin Concent (test code = 786-4) 32.9 31-35 [facility] TempleRDW VnbFf-Svm0270-21-24 05:30:00* Test Item Value Reference Range Interpretation Comments Red Cell Distribution Width (test code = 52906-9) 12.1 11.7 -14.4 [facility] TempleAutom[facility] blood platelet count (count/volume)2020-04-01 05:30:00* Test Item Value Reference Range Interpretation Comments Platelet Count (test code = 777-3) 267 140-360 [facility] TempleAutom[facility] blood segmented neutrophil count as percentage of total wtzdioddnu4542-78-82 05:30:00* Test Item Value Reference Range Interpretation Comments Neutrophils (%) (Auto) (test code = 90121-4) 38.9 38.7-80.0 [facility] Temple[facility] blood lymphocyte count as percentage ot total xxzhkvmdna8649-26-88 05:30:00* Test Item Value Reference Range Interpretation Comments Lymphocytes (%) (Auto) (test code = 736-9) 47.4 18.0-39.1 [facility] Temple[facility] blood monocyte count as percentage of total puurypoyef8539-54-85 05:30:00* Test Item Value Reference Range Interpretation Comments Monocytes (%) (Auto) (test code = 5905-5) 10.4 4.4-11.3 [facility] Temple[facility] blood eosinophil count as percentage of total qnsdjbrgos9214-43-58 05:30:00* Test Item Value Reference Range Interpretation Comments Eosinophils (%) (Auto) (test code = 713-8) 2.6 0.0-6.0 [facility] TempleAutom[facility] blood basophil count as percentage of total uwtizurpyy0429-02-39 05:30:00* Test Item Value Reference Range Interpretation Comments Basophils (%) (Auto) (test code = 706-2) 0.5 0.0-1.0 [facility] TempleFluoroscopic procedure less than one hour wvzoqrsw0107-71-36 05:30:00* Test Item Value Reference Range Interpretation Comments IM GRANULOCYTES % (test code = IM GRANULOCYTES %) 0.2 0.0- 1.0 [facility] Temple[facility] blood neutrophil count 2020-04-01 05:30:00* Test Item Value Reference Range Interpretation Comments Neutrophils # (Auto) (test code = 751-8) 2.3 2.1-6.9 [facility] TempleBlood lymphocytes count (number/volume) 2020-04-01 05:30:00* Test Item Value Reference Range Interpretation Comments Lymphocytes # (Auto) (test code = 91388-5) 2.8 1.0-3.2 [facility] TempleBlood monocytes automated count (number/volume)2020-04-01 05:30:00* Test Item Value Reference Range Interpretation Comments Monocytes # (Auto) (test code = 742-7) 0.6 0.2-0.8 [facility] TempleAutom[facility] blood eosinophil count 2020-04-01 05:30:00* Test Item Value Reference Range Interpretation Comments Eosinophils # (Auto) (test code = 711-2) 0.2 0.0-0.4 [facility] TempleAutom[facility] blood basophil count (count/volume)2020-04-01 05:30:00* Test Item Value Reference Range Interpretation Comments Basophils # (Auto) (test code = 704-7) 0.0 0.0-0.1 [facility] TempleFluoroscopic procedure less than one hour ttnzyhaa3712-14-17 05:30:00* Test Item Value Reference Range Interpretation Comments Absolute Immature Granulocyte (auto (mónica t code = Absolute Immature Granulocyte (auto) 0.01 0-0.1 [facility] plasma sodium measurement (moles/volume)2020-04-01 05:30:00* Test Item Value Reference Range Interpretation Comments Sodium Level (test code = 2951-2) 139 136-145 [facility] or plasma potassium measurement (moles/volume)2020-04-01 05:30:00* Test Item Value Reference Range Interpretation Comments Potassium Level (test code = 2823-3) 3.6 3.5-5.1 [facility] or plasma chloride measurement (moles/volume)2020-04-01 05:30:00* Test Item Value Reference Range Interpretation Comments Chloride Level (test code = 2075-0) 112 98-107 [facility] or plasma carbon dioxide, total measurement (moles/volume)2020-04-01 05:30:00* Test Item Value Reference Range Interpretation Comments Carbon Dioxide Level (test code = 2028-9) 19 22-29 [facility] or plasma anion pxh3469-16-92 05:30:00* Test Item Value Reference Range Interpretation Comments Anion Gap (test code = 77574-3) 11.6 8-16 [facility] or plasma urea nitrogen measurement (mass/volume)2020-04-01 05:30:00* Test Item Value Reference Range Interpretation Comments Blood Urea Nitrogen (test code = 3094-0) 10 7-26 [facility] or plasma creatinine measurement (mass/volume)2020-04-01 05:30:00* Test Item Value Reference Range Interpretation Comments Creatinine (test code = 2160-0) 0.69 0.57-1.11 [facility] or plasma urea nitrogen/creatinine mass kvaug1955-80-46 05:30:00* Test Item Value Reference Range Interpretation Comments BUN/Creatinine Ratio (test code = 3097-3) 14 -25 [facility] TempleEstimated glomerular filtration rate (GFR) dsqxdcubvpgut5259-81-97 05:30:00* Test Item Value Reference Range Interpretation Comments Estimat Glomerular Filtration Rate (test code = 271628874) > 60 >60 Ranges were taken from the National Kidney Disease Education Program and the [facility] Foundation literature.Reference ranges:60 or greater: Lnahzq65-88 ( for 3 consecutive months): Chronic kidney disease 15 or less: Kidney failureB[facility] Scott & [facility] Center – TempleGlucose fmvplsglcop1036-78-65 05:30:00* Test Item Value Reference Range Interpretation Comments Glucose Level (test code = NCP8380) 104 74-118 [facility] or plasma calcium measurement (mass/volume)2020-04-01 05:30:00* Test Item Value Reference Range Interpretation Comments Calcium Level (test code = 98609-8) 8.0 8.4-10.2 [facility] or plasma total bilirubin measurement (mass/volume)2020-04-01 05:30:00* Test Item Value Reference Range Interpretation Comments Total Bilirubin (test code = 1975-2) 0.4 0.2-1.2 [facility] TempleFluoroscopic procedure less than one hour ltnedyld6861-18-01 05:30:00* Test Item Value Reference Range Interpretation Comments Aspartate Amino Transf (AST/SGOT) (test code = Aspartate Amino Transf (AST/SGOT)) 16 5-34 [facility] or plasma alanine aminotransferase measurement (enzymatic activity/volume)2020-04-01 05:30:00* Test Item Value Reference Range Interpretation Comments Alanine Aminotransferase (ALT/SGPT) (test code = 1742-6) 9 0-55 [facility] or plasma protein measurement (mass/volume)2020-04-01 05:30:00* Test Item Value Reference Range Interpretation Comments Total Protein (test code = 2885-2) 6.3 6.5-8.1 [facility] or plasma albumin measurement (mass/volume)2020-04-01 05:30:00* Test Item Value Reference Range Interpretation Comments Albumin (test code = 1751-7) 3.7 3.5-5.0 [facility] TemplePlasma globulin measurement (mass/volume) 2020-04-01 05:30:00* Test Item Value Reference Range Interpretation Comments Globulin (test code = 42017-1) 2.6 2.3-3.5 [facility] or plasma albumin/globulin mass tynkq1579-82-63 05:30:00* Test Item Value Reference Range Interpretation Comments Albumin/Globulin Ratio (test code = 1759-0) 1.4 0.8-2.0 [facility] or plasma alkaline phosphatase measurement (enzymatic activity/volume)2020-04-01 05:30:00* Test Item Value Reference Range Interpretation Comments Alkaline Phosphatase (test code = 6768-6) 100 40-150 [facility] or plasma triglyceride measurement (mass/volume)2020-04-01 05:30:00* Test Item Value Reference Range Interpretation Comments Triglycerides Level (test code = 2571-8) 156 0-149 [facility] or plasma cholesterol measurement (mass/volume)2020-04-01 05:30:00* Test Item Value Reference Range Interpretation Comments Cholesterol Level (test code = 2093-3) 116 0-199 Less than 200 mg/dL Low Rtvu417 - 239 mg/dL Borderline Uwfj997 m g/dl and greater High Risk [facility] or plasma cholesterol in LDL measurement (mass/volume) 2020-04-01 05:30:00* Test Item Value Reference Range Interpretation Comments LDL Cholesterol (test code = 2089-1) 47 60-130 [facility] or plasma cholesterol in HDL measurement (mass/volume)2020-04-01 05:30:00* Test Item Value Reference Range Interpretation Comments HDL Cholesterol (test code = 2085-9) 38 40-60 [facility] or plasma total cholesterol/cholesterol in HDL mass uglkz7010-73-22 05:30:00* Test Item Value Reference Range Interpretation Comments Cholesterol/HDL Ratio (test code = 9830-1) 3.1 3.0-3.6 [facility] TempleCT CHEST [id number] 20:00:00 [facility] [address] [place] [address] Patient Name: SIMON STEPHENS MR #: [id number] : 1980 Age/Sex: 39/F Req #: [id number] Adm Physician: CARLOS SANDRA MD Ordered by: FLOYD SHARP MD Report #: [id number] Location: [facility]/Bed: [place] [address] Procedure: [id number] CT/CT CHEST W Exam Date: 03/31/20 Exam Time: 1829 REPORT STATUS: Signed EXAM: CT Chest WITH con trast 03/31/2020 6:30 PM INDICATION: Shortness of breath and chest pain suspici ous for pulmonary embolism. COMPARISON: Same day chest CT. TECHNIQUE: Chest was scanned utilizing a multidetector helical scanner from the lung apex through the level of the adrenal glands with administration of IV contrast. Coronal and sagittal reformations were obtained. Routine protocol was performe d. IV CONTRAST: 100 mL of Omnipaque 300 COMPLICATIONS: None RAD IATION DOSE: Total DLP: 534.13 mGy*cm Estimated effective dose: ( DLP x 0.014 x size factor) mSv CTDIvol has been reviewed. It is below the limits set by the Radiation Protocol Committee (RPC). Dose modulation, iterative reconstruction, and/or weight based adjustment of the mA/kV was uti lized to reduce the radiation dose to as low as reasonably achievable. F INDINGS: VASCULAR: There are no filling defects in the pulmonary arteries t o the segmental level. The pulmonary trunk has normal caliber measuring 2.3 cm . Ascending and descending aorta have normal caliber and enhancement measuring 2.7 cm and 2.1 cm, respectively. LINES/ TUBES: None. LUNGS AND AIRW AYS: The lungs are unremarkable. Airways are normal. PLEURA: The pleural spaces are clear. HEART AND MEDIASTINUM: The thyroid gland is normal. No m ediastinal, hilar or axillary lymphadenopathy. The heart is normal in size. T here is no pericardial effusion. UPPER ABDOMEN: Unremarkable. B ONES: The visualized bony thorax is within normal limits. Partially imaged cer vical spine hardware is intact. SOFT TISSUES: Subcutaneous emphysema and fa t stranding in the inferior right breast series 2 image 105). There is also ve ry superficial subcutaneous emphysema in the inferior left breast (series 2 im age 100). IMPRESSION: 1. No evidence of pulmonary embolism to the segme ntal levels. 2. Subcutaneous emphysema and fat stranding in the inferior aspe ct of both breasts. Correlate clinically. Signed by: Catherine Taveras MD on 03/31/2020 8:09 PM Dictated By: CATHERINE TAVERAS MD 08 Transcribed By: WILLAM on 03/31/202008 COPY TO: FLOYD SHARP MD Prothrombin time (PT) in platelet poor plasma by coagulation weetb2349-16-55 16:02:00* Test Item Value Reference Range Interpretation Comments Prothrombin Time (test code = 5902-2) 12.9 11.9-14.5 [facility] TempleINR in Platelet poor plasma by Coagulation [id number] 16:02:00* Test Item Value Reference Range Interpretation Comments Prothromb Time International Ratio (test code = 6301-6) 0.93 Oral Anticoagulant Therapy INR Values:1. Low Intensity Therapy 1.5 - 2.02 . Moderate Intensity Therapy 2.0 - 3.03. High Intensity Therapy(1) 2.5 - 3. 54. High Intensity Therapy(2) 3.0 - 4.05. Panic Value INR > 5.0 [facility] TempleActivated partial thromboplastin time (aPTT) in platelet poor plasma by coagulation aytgd7137-41-02 16:02:00* Test Item Value Reference Range Interpretation Comments Activated Partial Thromboplast Time (test code = 59976-2) 27.4 23.8-35.5 [facility] TempleFibrin D-dimer DDU measurement in platelet poor plasma (mass/volume)2020-03-31 16:02:00* Test Item Value Reference Range Interpretation Comments D-Dimer Quantitative (PE/DVT) (test code = 97386-4) 0.53 0. 00-0.45 As with all in vitro diagnostic tests, the test results should be interpreted by the physician in conjunction with clinical findings and other test results.Test results are reported in NEW D-dimer units(ug/mLFEU).[facility] TempleUrine color uiosieswyjzdr2384-87-54 16:02:00* Test Item Value Reference Range Interpretation Comments Urine Color (test code = 5778-6) YELLOW YELLOW [facility] TempleUrine gnjezsy8963-96-48 16:02:00* Test Item Value Reference Range Interpretation Comments Urine Clarity (test code = 20984-4) SL CLOUDY CLEAR [facility] Hospitalpecific gravity of Urine by Test strip 2020-03-31 16:02:00* Test Item Value Reference Range Interpretation Comments Urine Specific [place] (test code = 5811-5) 1.025 1.010-1.02 5 [facility] TempleU[facility] pH measurement by automated test [id number] 16:02:00* Test Item Value Reference Range Interpretation Comments Urine pH (test code = 66375-4) 5.5 5-7 [facility] Temple[facility] leukocyte esterase detection by wajqqtjs4276-18-36 16:02:00* Test Item Value Reference Range Interpretation Comments Urine Leukocyte Esterase (test code = 5799-2) NEGATIVE NEGATIVE [facility] TempleUrine nitrite cpjedgomy7749-21-25 16:02:00* Test Item Value Reference Range Interpretation Comments Urine Nitrite (test code = 19088-8) NEGATIVE NEGATIVE [facility] Temple[facility] protein measurement by test strip (mass/volume)2020-03-31 16:02:00* Test Item Value Reference Range Interpretation Comments Urine Protein (test code = 5804-0) TRACE NEGATIVE [facility] TempleUrine glucose lqdbahuok6237-78-90 16:02:00* Test Item Value Reference Range Interpretation Comments Urine Glucose (UA) (test code = 2349-9) NEGATIVE NEGATIVE [facility] Temple[facility] ketones detection by automated test uejyn2636-95-13 16:02:00* Test Item Value Reference Range Interpretation Comments Urine Ketones (test code = 79422-3) TRACE NEGATIVE [facility] TempleUrine opiates screening [id number] 16:02:00* Test Item Value Reference Range Interpretation Comments Urine Opiates Screen (test code = 58669-4) POSITIVE NEGATIVE ALL TESTS PERFORMED MANUALLY ON [employer] TOX/SEE TEST This test provides only a sc reen. Positive results should be repeated by a confirmatory test.[facility] TempleBarbiturates screen, [id number] 16:02:00* Test Item Value Reference Range Interpretation Comments Urine Barbiturates Screen (test code = 087486488) NEGATIVE NEGA TIVE [facility] TempleUrine phencyclidine detection by screening rjfsku7134-66-10 16:02:00* Test Item Value Reference Range Interpretation Comments Urine Phencyclidine Screen (test code = 90668-6) NEGATIVE NEGAT RADHA [facility] TempleUrine amphetamines detection by screen method > 1000 ng/qO5495-47-05 16:02:00* Test Item Value Reference Range Interpretation Comments Urine Amphetamines Screen (test code = 59041-7) POSITIVE NEGATI VE This test provides only a screen. Positive results should be repeated by a confi rmatory test.[facility] TempleFluoroscopic procedure less than one hour pxpimqfb1507-82-97 16:02:00* Test Item Value Reference Range Interpretation Comments Urine Methamphetamines Screen (test code = Urine Metha mphetamines Screen) POSITIVE NEGATIVE This test provides only a screen. Positive results should be repeated by a confi rmatory test.[facility] TempleUrine benzodiazepines detection by screening edzsaj6816-57-40 16:02:00* Test Item Value Reference Range Interpretation Comments Urine Benzodiazepines Screen (test code = 96213-0) POSITIVE NEG ATIVE This test provides only a screen. Positive results should be repeated by a confi rmatory test.[facility] Temple[facility]rine cocaine measurement (mass/volume)2020-03-31 16:02:00* Test Item Value Reference Range Interpretation Comments Urine Cocaine Screen (test code = 3398-5) NEGATIVE NEGATIVE [facility] Temple[facility]rine cannabinoids detection by screening diddyr7189-95-07 16:02:00* Test Item Value Reference Range Interpretation Comments Urine Cannabinoids Screen (test code = 19266-6) NEGATIVE NEGATI VE THESE RESULTS ARE FOR MEDICAL TREATMENT ONLYTHIS REPORT CONTAINS UNCONFIR MED SCREENING RESULTS*POSITIVE RESULTS WILL BE CONFIRMED BY REFERENCE LAB UPON R EQUEST CUT-OFFDRUG CLASS CONCENTRATION ng/mLAmphetamines 1000Methamphetamines 1000Cocaine 300Opiate 300Phencyc lidine 25Cannabinoid 50Barbiturates 300Benzodiazepine 300Methadone 300[facility] [id number] 16:02:00* Test Item Value Reference Range Interpretation Comments Urine Methadone Screen (test code = 40582-5) NEGATIVE NEGATIVE THESE RESULTS ARE FOR MEDICAL TREATMENT ONLYTHIS REPORT CONTAINS UNCONFIR MED SCREENING RESULTS*POSITIVE RESULTS WILL BE CONFIRMED BY REFERENCE LAB UPON R EQUEST CUT-OFFDRUG CLASS CONCENTRATION ng/mLAmphetamines 1000Methamphetamines 1000Cocaine Metabolite 300Opiate 300Phencyc lidine 25Cannabinoid 50Barbiturates 300Benzodiazepine 300Methadone 300[facility] urobilinogen measurement by test strip (mass/volume)2020-03-31 16:02:00* Test Item Value Reference Range Interpretation Comments Urine Urobilinogen (test code = 65666-4) 0.2 0.2-1 [facility] total bilirubin measurement (mass/volume)2020-03-31 16:02:00* Test Item Value Reference Range Interpretation Comments Urine Bilirubin (test code = 1978-6) SMALL NEGATIVE [facility] Temple[facility] erythrocytes [id number] 16:02:00* Test Item Value Reference Range Interpretation Comments Urine Blood (test code = 89021-5) NEGATIVE NEGATIVE [facility] TempleAutomated urine sediment leukocyte count by microscopy (number/high power field)2020-03-31 16:02:00* Test Item Value Reference Range Interpretation Comments Urine WBC (test code = 5821-4) 0-5 0-5 [facility] TempleErythrocytes detection in urine sediment by light [id number] 16:02:00* Test Item Value Reference Range Interpretation Comments Urine RBC (test code = 95339-8) 0-5 0-5 [facility] TempleBacteria detection in urine sediment by light [id number] 16:02:00* Test Item Value Reference Range Interpretation Comments Urine Bacteria (test code = 91428-3) RARE NONE [facility] TempleEpithelial cells detection in urine sediment by light [id number] 16:02:00* Test Item Value Reference Range Interpretation Comments Urine Epithelial Cells (test code = 98371-6) FEW NONE [facility] TempleHyaline casts detection in urine sediment by light [id number] 16:02:00* Test Item Value Reference Range Interpretation Comments Urine Hyaline Casts (test code = 04895-4) 2-5 0-1 [facility] TempleMucus detection in urine sediment by light [id number] 16:02:00* Test Item Value Reference Range Interpretation Comments Urine Mucus (test code = 8247-9) FEW RARE [facility] or plasma magnesium measurement (mass/volume)2020-03-31 16:02:00* Test Item Value Reference Range Interpretation Comments Magnesium Level (test code = 01952-9) 1.4 1.3-2.1 [facility] or plasma acetaminophen measurement by screening method (mass/volume)2020-03-31 16:02:00* Test Item Value Reference Range Interpretation Comments Acetaminophen Level (test code = 17674-9) < 3.0 10-30 [facility] or plasma choriogonadotropin ( test) [id number] 16:02:00* Test Item Value Reference Range Interpretation Comments Human Chorionic Gonadotropin, Qual (test code = 2118-8) NEGATIVE NEGATIVE [facility] or plasma ethanol measurement (mass/volume)2020-03-31 16:02:00* Test Item Value Reference Range Interpretation Comments Ethyl Alcohol Level (test code = 5643-2) 98.9 0.0-10.0 [facility] or plasma salicylates measurement (mass/volume)2020-03-31 16:02:00* Test Item Value Reference Range Interpretation Comments Salicylates Level (test code = 4024-6) < 5.0 0-30 [facility] TempleCT CHEST W/O [id number] 08:21:00 [facility] [address] [place] [address] Patient Name: SIMON STEPHENS MR #: [id number] : 1980 Age/Sex: 39/F Req #: [id number] Adm Physician: Ordered by: BÁRBARA BUSTILLOS MD Report #: [id number] Location: [facility] Room/Bed: Procedure: HOPD/CT C HEST W/O CONTRAST-HOPD Exam Date: 03/31/20 Exam Time : 813 REPORT STATUS: Signed EXA M: CT Chest WITHOUT intravenous contrast 03/31/2020 7:56 AM INDICATION: Fall COMPARISON: None TECHNIQUE: Chest was scanned utilizing a multidetector hel ical scanner from the lung apex through the level of the adrenal glands withou t administration of IV contrast. Coronal and sagittal reformations were obtain ed. Routine protocol was performed. IV CONTRAST: None RADIATION DOSE: T otal DLP: 585 mGy*cm. Dose modulation, iterative reconstruction, and/or weight based adjustment of the mA/kV was utilized to reduce the radiation dose to as low as reasonably achievable. COMPLICATIONS: None FINDINGS: LINES/ TUBES: None. LUNGS AND AIRWAYS: The central airways are patent. No focal consolidation or pulmonary edema. Minimal right and left lower lobe dependent subsegmental atelectasis. No suspicious pulmonary nodules. PLEURA: The p leural spaces are clear. HEART AND MEDIASTINUM: The thyroid gland is normal . No mediastinal, hilar or axillary lymphadenopathy. The heart is normal in size.. There is no pericardial effusion. UPPER ABDOMEN: No acute findin gs in the upper abdomen. Status post cholecystectomy. BONES: No acute oss eous injury. No suspicious lytic or blastic lesions. SOFT TISSUES: Soft tis juwan irregularity at the right inframammary lateral thoracic soft tissues with associated subcutaneous fat stranding. 7 mm subcutaneous soft tissue nodule ov erlying the sternum, likely a sebaceous cyst. IMPRESSION: No acute traum atic thoracic injury. Soft tissue irregularity at the right inframammary an terolateral thoracic soft tissues with associated subcutaneous fat stranding. Please correlate with physical exam findings. Signed by: Gucci Vásquez MD o n 03/31/2020 8:28 AM Dictated By: GUCCI VÁSQUEZ MD 7 Transcribed By: WILLAM on 03/31/20827 COPY TO: BÁRBARA BUSTILLOS MD CT MAX/FACPARABRAZO [facility] SIN [id number] 08:14:00 [place] [address] Patient Name: SIMON STEPHENS MR #: [id number] : 1980 Age/Sex: 39/F Req #: [id number] Adm Physician: Ordered by: BÁRBARA BUSTILLOS MD Report #: [id number] Location: [facility] Room/Bed: Procedure: [id number] HOPD/CT M AX/FACPARANASA SIN WO-HOPD Exam Date: 03/31/20 Exam Time: 813 REPORT STATUS: Signed Exams: Head and maxillofacial CTs without IV contrast History: Trauma Co mparison studies: Head CT 03/05/2018 Technique: Axial images were obtained to the vertex and maxillofacial region. Coronal and sagittal images reconstru cted from the axial data. Dose modulation, iterative reconstruction, and/or we ight based adjustment of the mA/kV was utilized to reduce the radiation dose t o as low as reasonably achievable. Intravenous contrast: None Findings: Scalp: No abnormalities. Bones: No fractures, blastic or lytic lesions. Brain sulci: Appropriate for age. Ventricles: Normal in size and configura tion. No hydrocephalus. Parenchyma: Normal no densities. No masses, he morrhage, acute or chronic vascular insults. Sellar/suprasellar region: No abnormalities Craniocervical junction: Patent foramen magnum. No Chiari one ma lformation. Maxillofacial CT: Soft tissues: Soft tissue swelling w ith soft tissue defect consistent with laceration in the anterior chin. No ret ained hyperdense foreign body. Unchanged incidental focal linear scarring in t he right lateral in the right lateral periorbital/anterior previous traumatic soft tissues. Bones: No fractures or bony abnormalities. Orbits: Globes: Intact Extra or intraconal abnormalities: None. Paranasal sinu ses: Clear Incidental findings: Right upper lip piercing with 2 metall ic loops in place. Foreign body in the intradural cavity can be correlated wit h direct visualization (prior oral tongue piercing with nonmetallic barbel?). IMPRESSION: Head CT: 1. No acute abnormalities 2. No changes from the prior head CT on 02/25/[address]: 1. Midline chin l aceration with regional soft tissue swelling. 2. No retained hyperdense forei gn body or fracture. Signed by: Dr. Ander Hagan M.D. on 03/31/2020 8:30 A M Dictated By: ANDER HAGAN MD 9 Transcribed By: WILLAM on 03/31/20829 COPY TO: BÁRBARA BUSTILLOS MD CT BRAIN [id number] 08:14:00 [place] [address] Patient Name: SIMON STEPHENS MR #: [id number] : 1980 Age/Sex: 39/F Req #: [id number] Adm Physician: Ordered by: BÁRBARA BUSTILLOS MD Report #: [id number] Location: [facility]/Bed: Procedure: [id number] [facility] Ex[facility] Date: 03/31/20 Exam Time: 0815 REPORT STATUS: Signed Exams: Head a nd maxillofacial CTs without IV contrast History: Trauma Comparison studi es: Head CT 03/05/2018 Technique: Axial images were obtained to the vertex and maxillofacial region. Coronal and sagittal images reconstructed from the axial data. Dose modulation, iterative reconstruction, and/or weight based adj ustment of the mA/kV was utilized to reduce the radiation dose to as low as re asonably achievable. Intravenous contrast: None Findings: Scalp: No abnormalities. Bones: No fractures, blastic or lytic lesions. Brain sulc i: Appropriate for age. Ventricles: Normal in size and configuration. No hydro cephalus. Parenchyma: Normal no densities. No masses, hemorrhage, acut e or chronic vascular insults. Sellar/suprasellar region: No abnormalities Craniocervical junction: Patent foramen magnum. No Chiari one malformation. Maxillofacial CT: Soft tissues: Soft tissue swelling with soft tissu e defect consistent with laceration in the anterior chin. No retained hyperden se foreign body. Unchanged incidental focal linear scarring in the right later al in the right lateral periorbital/anterior previous traumatic soft tissues. Bones: No fractures or bony abnormalities. Orbits: Globes: Int act Extra or intraconal abnormalities: None. Paranasal sinuses: Clear Incidental findings: Right upper lip piercing with [address] blank. Foreign body in the intradural cavity can be correlated with direct vis ualization (prior oral tongue piercing with nonmetallic barbel?). IMPRES VIDA: Head CT: 1. No acute abnormalities 2. [facility]: 1. Midline chin laceration with regional soft tissue swelling. 2. No retained hyperdense foreign body or fra cture. Signed by: Dr. Ander Hagan M.D. on 03/31/2020 8:30 AM Dicta michael By: ANDER HAGAN MD 9 COPY TO: Narciso BUSTILLOS MD [id number] 14:45:00 RUN DATE: 02/10/20 [place] PAGE 1 RUN TIME: 1445 Specimen Inqui ry RUN USER: INTERFACE PATIENT: SIMON STEPHENS ACCT #: [id number] LOC: [facility] U #: [id number] AGE/SX: 39/F ROOM: RE02/06/20REG DR: Marnie West MD : [birth year] BED: DIS: STATUS: [facility] TLOC: SPEC #: [id number] RECD: 02/09/20 STATUS: [facility] GOMES #: [id number] UCHE: 02/06/20- SUBM DR: Marnie West MD ENTERED: 02/09/20 SP TYPE: BREAST OTHR DR: Carlos Sandra MD ORDERED: GROSS COPIES TO: Carlos Sandra MD [address] [facility] [address] [place] [address] [email or web address] Marnie Redmond MD [address] [facility] [address] [place] [address] PROCEDURES: GROSS (02/10/20-1236) TISSUES: 1. LEFT BREAST, NOS - TI SSUE 2. RIGHT BREAST, NOS - TISSUE CLINICAL HISTORY COLLECTIO N DATE: 02/06/20 FINAL DIAGNOSIS Left breast tissue, reduction mammopl asty: SKIN WITH MILD EPITHELIAL HYPERPLASIA, HYPERKERATOSIS AND SOLAR ANU STOSIS ATROPHIC SKIN WITH SOLAR ELASTOSIS PRESENT FATTY REPLACED B REAST TISSUE NEGATIVE FOR MALIGNANCY Right breast tissue, reduction mammoplasty: ATROPHIC SKIN WITH MILD HYPERKERATOSIS AND SOLAR ELASTOSIS FATTY REPLACED BREAST PARENCHYMA NEGATIVE FOR MALIGNANCY RRB/hortensia D [id number] CONTINUED ON NEXT PAG E RUN DATE: 02/10/20 [facility] PAGE 2 RUN TIME: 1445 Specimen Inquiry RUN USER: INTERFACE SPEC #: [id number] PATIENT: GIUSEPPE STEPHENS HAIDER CATHERINE #[id number] (Continued) [facility] Specimen (1) is received in formalin, labeled with the patient's name, a nd identified as "left breast tissue". It consists of portions of yellow lobul ated fatty tissue. The largest portion measures 16.0 x 7.2 x 4.5 cm and inclu tg an ellipse of light fry skin measuring 15.3 x up to 5.5 cm. This ellipse shows a previous area of incision that is closed with metal jeffery. Three ad ditional portions of tissue are present that measure 9.0 x 9.0 x 3.5 cm in agg regate . Two portions have attached portions of unremarkable skin that measure 2.5 x 2.0 cm and 6.5 x up to 2.7 cm. No focal lesions are identified on the skin surfaces. Sectioning through the tissue shows lobulated fatty tissue. Coagulating Drying Supervisor portions of tissue are submitted as (1A-1B). Specimen (2) is received in formalin, labeled with the patient's name, and identified as "r ight breast tissue". It consists of a portions lobulated fatty tissue with at tached skin. The largest intact portion measures 19 x 10.5 x up to 4.0 cm wit h an attached skin ellipse measuring 18.5 x up to 8.0 cm. Additional portions of tissue are present measuring 10.0 x 8.5 x up to 3.0 cm. Two have attached portions of fry-pink skin measuring 4.0 x 1.3 cm and 6.5 x up to 2.0 cm. A surgical incision closed with metal jeffery is present on the surface of t he largest intact portion. A circular defect is adjacent to the incision re sembling the area around the areola. Sectioning through the tissue shows lobu lated fatty tissue with no focal lesions. Coagulating Drying Supervisor tissue is submitted as (2A-2B). GROSS PERFORMED AT [facility] [address] [place] [address] ([phone] MICROSCOPIC All of the stains, including any controls performe d, stain appropriately. MICROSCOPIC PERFORMED AT [facility] [address] [place] [address] (P) PERFORMING SITE Diagnosis performed at: [facility] [address] [place] [address] CONTINUE D ON NEXT PAGE RUN DATE: 02/10/20 [employer] PAGE 3 RUN TIME: 1445 Specimen Inquiry RUN USER: INTERFACE SPEC #: [id number] ANTONELLA ENT: SIMON STEPHENS #[id number] ([facility]) PERFORMING SITE ([facility]) [phone] Signed SIGNATURE ON FILE Alex Page MD 02/10/20 1445 --- --------- END OF REPORT [facility] TEST:2020-02-09 09:33:00* Test Item Value Reference Range Interpretation Comments [facility] TEST: (test code = MISCCHEM) SEE REPORT TEST RESULT UNITSNicotine and Metabolite, Ur Qn Nicotine* <10.0 ng/mL Nicotine levels greater than 100.0 are consistent with the use of tobacco or tobacco cessation products. Cotinine* <10.0 ng/mL Cotinine levels greater than 200.0 are consistent with the use of tobacco or tobacco cessation products. Test performed at: [facility] [address] [place] [address] TESTING IN PROGRESS; [facility]# [id number] ; [email or web address].LAG 02/05/20 0630 SENT 20ML URINE, REFURINE COTININE L EVELV.LAB.LAMONTE 01/30/20 1228HCG SERUM [id number] 19:25:00* Test Item Value Reference Range Interpretation Comments HCG SERUM QUAL (test code = HCGQL) NEGATIVE NEGATIVE This HCGQL test is NOT applicable for MALE patients.Check with nurse about probable order error.If Tumor Marker Test needed, nurse should order test "HCGTU"(Test #550.89127) COMPREHENSIVE METABOLIC [id number] 16:01:00* Test Item Value Reference Range Interpretation Comments SODIUM (test code = NA) 141 mmol/L 136-145 N POTASSIUM (test code = K) 3.6 mmol/L 3.5-5.1 N CHLORIDE (test code = CL) 105.0 mmol/L 98-107 N CARBON DIOXIDE (test code = CO2) 26.0 mmol/L 21-32 N ANION GAP (test code = GAP) 13.6 10-20 N GLUCOSE (test code = GLU) 79 mg/dL 74-106 N BLOOD UREA NITROGEN (test code = BUN) 10 mg/dL 7-18 N GLOMERULAR FILTRATION RATE (test code = GFR) > 60 mL/min >=60 Estimated GFR by using Modified MDRD formula.Chronic kidney disease is defined as either kidney damageor GFR <60 mL/min/1.73 m2 for >3 months. CREATININE (test code = CREAT) 0.50 mg/dL 0.55-1.02 L Note change in reference range due to change in reagent. BUN/CREATININE RATIO (test code = BUN/CREA) 18.5 10-20 N TOTAL PROTEIN (test code = PROT) 8.0 gram/dL 6.4-8.2 N ALBUMIN (test code = ALB) 3.9 g/dL 3.4-5.0 N GLOBULIN (test code = GLOB) 4.1 gram/dL 2.7-4.2 N ALBUMIN/GLOBULIN RATIO (test code = A/G) 1.0 0.75-1.50 N CALCIUM (test code = CA) 8.5 mg/dL 8.5-10.1 N BILIRUBIN TOTAL (test code = BILT) 0.40 mg/dL 0.0-1.0 N SGOT/AST (test code = AST) 37 IUnit/L 15-37 N SGPT/ALT (test code = ALT) 42 IUnit/L 12-78 N ALKALINE PHOSPHATASE TOTAL (test code = ALKP) 92 IUnit/L 45-117 N Note change in reference range due to change in reagent. COMPREHENSIVE METABOLIC [id number] 15:49:00* Test Item Value Reference Range Interpretation Comments SODIUM (test code = NA) 141 mmol/L 136-145 N POTASSIUM (test code = K) 3.6 mmol/L 3.5-5.1 N CHLORIDE (test code = CL) 105.0 mmol/L 98-107 N CARBON DIOXIDE (test code = CO2) mmol/L 21-32 ANION GAP (test code = GAP) 10-20 GLUCOSE (test code = GLU) mg/dL 74-106 BLOOD UREA NITROGEN (test code = BUN) mg/dL 7-18 GLOMERULAR FILTRATION RATE (test code = GFR) mL/min >=60 CREATININE (test code = CREAT) mg/dL 0.55-1.02 BUN/CREATININE RATIO (test code = BUN/CREA) 10-20 TOTAL PROTEIN (test code = PROT) gram/dL 6.4-8.2 ALBUMIN (test code = ALB) g/dL 3.4-5.0 GLOBULIN (test code = GLOB) gram/dL 2.7-4.2 ALBUMIN/GLOBULIN RATIO (test code = A/G) 0.75-1.50 CALCIUM (test code = CA) mg/dL 8.5-10.1 BILIRUBIN TOTAL (test code = BILT) mg/dL 0.0-1.0 SGOT/AST (test code = AST) IUnit/L 15-37 SGPT/ALT (test code = ALT) IUnit/L 12-78 ALKALINE PHOSPHATASE TOTAL (test code = ALKP) IUnit/L 45-117 CBC W/AUTO [id number] 14:52:00* Test Item Value Reference Range Interpretation Comments WHITE BLOOD CELL (test code = WBC) 15.3 K/mm3 4.5-12.5 H RED BLOOD CELL (test code = RBC) 3.62 mill/mm3 3.7-5.2 L HEMOGLOBIN (test code = HGB) 12.3 gram/dL 11.5-15.5 N HEMATOCRIT (test code = HCT) 37.5 % 36.0-46.0 N MEAN CELL VOLUME (test code = MCV) 103.6 fL 80-98 H MEAN CELL HGB (test code = MCH) 34.0 picogram 27.0-33.0 H MEAN CELL HGB CONCETRATION (test code = MCHC) 32.8 gram/dL 33.0-36. 0 L RED CELL DISTRIBUTION WIDTH (test code = RDW) 13.1 % 11.6-16. 2 N RED CELL DISTRIBUTION WIDTH SD (test code = RDW-SD) 49.3 fL 37 .0-51.0 N PLATELET COUNT (test code = PLT) 373 K/mm3 150-450 N MEAN PLATELET VOLUME (test code = MPV) 10.0 fL 6.7-11.0 N NEUTROPHIL % (test code = NT%) 71.0 % 39.0-69.0 H IMMATURE GRANULOCYTE % (test code = IG%) 0.5 % 0.0-5.0 N LYMPHOCYTE % (test code = LY%) 19.8 % 25.0-55.0 L MONOCYTE % (test code = MO%) 8.2 % 0.0-10.0 N EOSINOPHIL % (test code = EO%) 0.2 % 0.0-5.0 N BASOPHIL % (test code = BA%) 0.3 % 0.0-1.0 N NUCLEATED RBC % (test code = NRBC%) 0.0 % 0-0 N NEUTROPHIL # (test code = NT#) 10.88 K/mm3 1.8-7.7 H IMMATURE GRANULOCYTE # (test code = IG#) 0.08 x10 3/uL 0-0.03 H LYMPHOCYTE # (test code = LY#) 3.04 K/mm3 1.0-5.0 N MONOCYTE # (test code = MO#) 1.26 K/mm3 0-0.8 H EOSINOPHIL # (test code = EO#) 0.03 K/mm3 0.0-0.5 N BASOPHIL # (test code = BA#) 0.04 K/mm3 0.0-0.2 N NUCLEATED RBC # (test code = NRBC#) 0.00 K/mm3 0.0-0.1 N MANUAL DIFF REQUIRED (test code = MDIFF) NO COVID 19 Asymptomatic IH [id number] 14:50:00* Test Item Value Reference Range Interpretation Comments COVID 19 Asymptomatic IH AG (test code = COVNONPUIAG) NEGATIVE BREAST ULTRASOUND [id number] 17:01:02 - DIAG MAMM BILATERAL CHRIS CAD DIGITALBILATERAL DIGITAL DIAGNOSTIC MAMMOGRAM 3D/2D WITH CAD: 03/13/2019CLINICAL: Follow up to previous exam. Digital breast tomosynthesis was performed in addition to routine CC and MLO views. Current mammographic images were evaluated by either a [employer] M-Vu or a [employer] ImageChecker CAD (computer aided detection system). Comparison is made to exam dated 06/14/2017 mammogram - [facility]. The tissue of both breasts is heterogeneously dense. This may lower the sensitivity of mammography. No suspicious mass, architectural distortion, malignant type calcification, or lymph node abnor mality detected. INCOMPLETE ASSESSMENT: ADDITIONAL IMAGING EVALUATION RECOMMEND EDBilateral ultrasound pending for additional evaluation. Resume annual screeni ng mammography in one year. - BREAST ULTRASOUND BILATERALULTRASOUND OF BOTH CIERA ASTS AND BOTH AXILLA: 03/13/2019Comparison is made to exam dated 06/14/2017 mammog richard - [facility]. Real-time ultrasound of both breasts and both axilla and clinical breast exam were performed. No abnormalities were seen son ographically in either breast or either axilla. Clinical breast exam was unrema rkable.IMPRESSION: NEGATIVE There is no sonographic evidence of malignancy. Pat ient has been informed that she has areas of dense breast tissue that could make it difficult to find a small cancer. A screening mammogram and supplemental ult rasound for dense breast tissue is recommended in 1 year.Monet Geronimo M.D. dm/:03/13/2019 17:01:02 Stitch Cleaner: Hali OWEN, [facility] sent: BIRADS 1-2 Combo FU Letter Mammogram BI-RADS: 0 Indete rminate Ultrasound BI-RADS: 1 NegativeDIAG MAMM BILATERAL CHRIS CAD DIGITAL 2019-03-13 17:01:02 - DIAG MAMM BILATERAL CHIRS CAD DIGITALBILATERAL DIGITAL DIAGNOSTIC MAMMOGRAM 3D/2D WITH CAD: 03/13/2019CLINICAL: Follow up to previous exam. Digital breast tomosynthesis was performed in addition to routine CC and MLO views. Current mammographic images were evaluated by either a [employer] M-Vu or a [employer] ImageChecker CAD (computer aided detection system). Comparison is made to exam dated 06/14/2017 mammogram - [facility] The tissue of both breasts is heterogeneously dense. This may lower the sensitivity of mammography. No suspicious mass, architectural distortion, malignant type calcification, or lymph node abnormality detected. INCOMPLETE ASSESSMENT: ADDITIONAL IMAGING EVALUATION RECOMMENDEDBilateral ultrasound pending for additional evaluation. Resume annual screening mammography in one year. - BREAST ULTRASOUND BILATERALULTRASOUND OF BOTH BREASTS AND BOTH AXILLA: 03/13/2019Comparison is made to exam dated 06/14/2017 mammogram - [facility] Real-time ultrasound of both breasts and both axilla and clinical breast exam were performed. No abnormalities were seen sonographically in either breast or either axilla. Clinical breast exam was unrema rkable.IMPRESSION: NEGATIVE There is no sonographic evidence of malignancy. Enid amaya has been informed that she has areas of dense breast tissue that could make it difficult to find a small cancer. A screening mammogram and supplemental ult rasound for dense breast tissue is recommended in 1 year.Monet Geronimo M.D. dm/:03/13/2019 17:01:02 Stitch Cleaner: Hali OWEN, [facility] sent: BIRADS 1-2 Combo FU Letter Mammogram BI-RADS: 0 Indete rminate Ultrasound BI-RADS: 1 NegativeCT BRAIN [id number] 12:15:00 [facility] [address] [address] Patient Name: SIMON STEPHENS MR #: [id number] : Age/Sex: 37/F Req #: [id number] Adm Physician: Ordered by: GRECIA JOSEPH MD Report #: [id number] Location: [facility] Room/Be d: Procedure: [id number] HOPD/CT BRAIN WO-HOPD Exam D ate: Exam Time: REPORT STATUS: Signed EXAM INATION: Head CT HISTORY: Headache for the last day, nausea and vomiting, hypertension COMPARISON: None. TECHNIQUE: Multidetector axial images were ob tained without contrast from the foramen magnum to the vertex . The images wer e reconstructed using brain and bone algorithms. Thin section brain images we re reformatted into coronal and sagittal planes. Intravenous contrast: None. Image quality: Motion/streaking artifact limits the evaluation of the skull base and posterior cranial fossa. Dose modulation, iterative reconstructi on, and/or weight based adjustment of the mA/kV was utilized to reduce the rad iation dose to as low as reasonably achievable. FINDINGS: Pa renchyma: 1. No abnormal densities. 2. No mass or hemorrhage. No CT evide nce of acute territorial vascular insult. Extra-axial spaces:No abnormal density. No extra-axial fluid collections Brain sulci: Mildly prominent for age. Ventricles: No hydrocephalus or displacement. Arteries: No density suggestive of thrombus. Dural sinuses: No abnorma l density. Extra-axial spaces: No abnormal density. Foramen magn um: No mass, Chiari malformation, or basilar invagination. Sella: No obv ious mass. Paranasal/mastoid sinuses: Imaged portions unremarkable. Skull/Scalp: No lytic or blastic lesions. No fractures. IMPRESSION: No acute intracranial abnormalities, particularly no mass, hydrocephalus or hemorrhage. Signed by: Dr. Patricia Ribeiro M.D. on 03/05/2018 12:21 PM Dictated By: PATRICIA RIBEIRO MD [id number] COPY TO: GRECIA JOSEPH MD CT ABD/PEL WITH [id number] 08:57:00 [place] [id number] Patient Name: SIMON STEPHENS MR #: [id number] : 1980 Age/Sex: 37/F Req #: [id number] Adm Physician: Ordered by: MARGA CAMPBELL MD Report #: [id number] Location: [facility] Room /Bed: Procedure: [id number] HOPD/CT ABD/PEL WITH CONTR AST-HOPD Exam Date: 03/05/18 Exam Time: 0815 R EPORT STATUS: Signed EXAMINATION: CT of the abdomen and pelvis with contrast. TECHNIQUE: Spiral CT images of the abdomen and pelvis were performed fr om the lung bases to the lesser trochanters after the intravenous administrati on of 96 cc of Isovue 300. Coronal and sagittal reformatted images were obtai marlene. Dose reduction parameters were utilized. DLP: 434.81 mGy-cm CO MPARISON: None. CLINICAL HISTORY:Nausea and vomiting DISCUSSION: ABDOMEN/PELVIS: LOWER THORAX:Unremarkable. HEPATOBILIARY: There is fatty infiltration of the liver. No focal hepatic lesions. No intra-or ex trahepatic biliary ductal dilation. The gallbladder is absent. SPLEEN : No splenomegaly. PANCREAS: No focal masses or ductal dilatation. AD RENALS: No adrenal nodules. KIDNEYS/URETERS: No hydronephrosis, stones or s olid mass lesions. PELVIC ORGANS/BLADDER: The bladder is normal. There ar e pelvic phleboliths. PERITONEUM/RETROPERITONEUM: No free air or fluid. LYMPH NODES: No intra-abdominal, retroperitoneal, pelvic or inguinal lymphad enopathy. VESSELS: The celiac trunk,superior and inferior mesenteric and bi lateral renal arteries are patent. The portal, superior mesenteric and splen ic veins are patent. GI TRACT: No distention or wall thickening. BON ES AND SOFT TISSUE: No bony destructive lesions. Postoperative changes at L5 -S1 with a laminectomy, disc spacer and interpedicular screws/rods. No soft ti ssue abnormalities. IMPRESSION: 1. No acute abdominal or pelvic abn ormality. 2. Diffuse hepatic steatosis without focal abnormality. Signed by: Dr. Rashel Larson DO on 03/05/2018 9:11 AM Dictated By: RASHEL LARSON DO 0911 Transcribed By : WILLAM on 03/05/18 0911 COPY TO: MARGA CAMPBELL MD
--- OUTSIDE RECORDS SUMMARY | 2020-04-04 15:47 | XMS REPORT | Continuity of Care Document ---
Author Author Yvon [place] Stance SIMON Sloan [employer] Address Unknown Phone Unavailable Care Team Providers Care Gas Specialist Name Role Phone [employer] Unavailable Un available Problems No [...] ADM Date DC Date Status Source Outpatient [id number] ELVA GEORGE [facility]04[facility] [id number] ELVA GEORGE 05/09/2018 Active [facility] Procedures No Data Provided for This [...]
--- OUTSIDE RECORDS SUMMARY | 2020-04-04 15:47 | XMS REPORT | Continuity of Care Document ---
Author Author [facility] t Organization [facility] Address [address] [place] [address] Phone Unavailable Care Team Providers Care Obstetrician Name Role Phone CLAUDINE DOE, MD PIERCE PCP CARLOS SANDRA Attphys Unavailable KOUSSBÁRBARA HWANG Attphys Unavailable DUCHAMP, A GRECIA Attphys Unavailable CARLOS SANDRA Admphyjudd Unavailable Payers Payer Name Policy Type Policy Number Effective Date Expiration Date Judd vance 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 [facility] Injury of head Problem Active [facility] Facial laceration Problem Active [facility] Traumatic injury of chest wall Problem Active [facility] Syncope Problem Active [facility] Overuse of medication Problem Active [facility] Intoxication Problem Active [facility] Allergies, Adverse Reactions, Alerts Allergy Name Allergy Type Status Severity Reaction(s) Onset Date Inacti ve Date Treating Clinician Comments Source No Known Allergies DA Active U 2020-01-30 00:00:00 [facility] No Known Intolerances DA Active U 2010-03-21 00:00:00 [facility] Social History Social Habit Start Date Stop Date Quantity Comments Source Sex Assigned At 1980 00:00:00 1980 00:00:00 Female [facility] Medications Ordered Medication Name Filled Medication Name Start Date Stop Da te Current Medication? Ordering Clinician Indication Dosage Frequency Signature (SIG) Comments Components Source Cephalexin Monohydrate (Keflex) 500 Mg CAPSULE Cephale matt Monohydrate (Keflex) 500 Mg CAPSULE 2020-03-31 09:38:00 Yes 1 Every 6 H ours [facility] Cyclobenzaprine Hcl (Flexeril) 5 Mg TABLET Cyclobenzap rine Hcl (Flexeril) 5 Mg TABLET 2020-03-31 09:38:00 Yes 10 Every 8 Hours as needed for Pain [facility] Promethazine Hcl Promethazine Hcl 2018-03-05 12:40:00 Yes 25 Every 4 Hours as needed for Nausea And Vomiting [facility] Alprazolam (Xanax) 0.25 Mg TABLET Alprazolam (Xanax) 0.25 Mg TABLET Yes 1 As Needed as needed for Anxiety [facility] Amoxicillin Amoxicillin Yes 500 Twice A Day [facility] Hydrocodone Bit/Acetaminophen ([place] 10-325 Tablet) 1 Each TABLET Hydrocodone Bit/Acetaminophen ([place] 10-325 Tablet) 1 Each TABLET Yes 1 As Needed as needed for Pain [facility] Zolpidem Tartrate (Ambien) 10 Mg TABLET Zolpidem Tartrate (A mbien) 10 Mg TABLET Yes 10 Bedtime as needed for Pain [facility] Vital Signs Vital Name Observation Time Observation Value Comments Source Weight 2020-03-31 15:41:00 160 [lb_av] [facility] BMI (Body Mass Index) 2020-03-31 15:41:00 26.6 kg/m2 [facility] Weight 2020-03-31 07:15:00 160 [lb_av] [facility] BMI (Body Mass Index) 2020-03-31 07:15:00 26.6 kg/m2 [facility] Procedures Procedure Date / Time Performed Performing Clinician Sour e Computed tomography of chest with contrast 2020-03-31 00:00:00 [facility] Encounters Start Date/Time End Date/Time Encounter Type Admission Type Attendi [facility] Facility Care Department Encounter ID Source 2020-03-31 18:52:00 2020-03-31 18:52:00 Admitted Inpatient (obs) 1 CLAUDINEYOUSIFVE [facility] [id number] [facility] 2020-03-31 07:37:00 2020-03-31 09:50:00 Departed Emergency Room 1 BÁRBARA BUSTILLOS [facility] [id number] [facility] 2018-03-05 05:51:00 2018-03-05 13:02:00 Departed Emergency Room [address] [facility] [id number] [facility] 2017-06-25 10:22:00 2017-06-25 13:23:[address] [facility] [id number] [facility] Results Test Description Test Time Test Comments Results Result Comments Source Serum or plasma creatine kinase measurement (enzymatic activity/volume) 2020-04-01 12:28:00 Test Item Creatine Kinase (test code = 2157-6) 62 29-168 [facility] creatine kinase MB measurement (mass/volume)2020-04-01 12:28:00* Test Item Value Reference Range Interpretation Comments Creatine Kinase MB (test code = 83341-2) 1.30 0-5.0 [facility] CenterT[facility] I measurement by highly sensitive enzyme ihukdffrlkd8241-57-53 12:28:00* Test Item Value Reference Range Interpretation Comments Troponin I (test code = 90789-0) 0.001 0-0.300 [facility] CenterBlood leukocytes automated count (number/volume)2020-04-01 05:30:00* Test Item Value Reference Range Interpretation Comments White Blood Count (test code = 6690-2) 5.88 4.8-10.8 [facility] CenterBlood erythrocytes automated count (number/volume)2020-04-01 05:30:00* Test Item Value Reference Range Interpretation Comments Red Blood Count (test code = 789-8) 3.23 3.6-5.1 [facility] hemoglobin measurement (moles/volume)2020-04-01 05:30:00* Test Item Value Reference Range Interpretation Comments Hemoglobin (test code = 13928-0) 10.6 12.0-16.0 [facility]Aut[facility] hematocrit (volume fraction)2020-04-01 05:30:00* Test Item Value Reference Range Interpretation Comments Hematocrit (test code = 4544-3) 32.2 34.2-44.1 [facility] CenterAutomated erythrocyte mean corpuscular lyxfyd1449-16-95 05:30:00* Test Item Value Reference Range Interpretation Comments Mean Corpuscular Volume (test code = 787-2) 99.7 81-99 [facility] CenterAutomated erythrocyte mean corpuscular hemoglobin (mass per erythrocyte)2020-04-01 05:30:00* Test Item Value Reference Range Interpretation Comments Mean Corpuscular Hemoglobin (test code = 785-6) 32.8 28-32 [facility] CenterAutomated erythrocyte mean corpuscular hemoglobin concentration measurement (mass/volume)2020-04-01 05:30:00* Test Item Value Reference Range Interpretation Comments Mean Corpuscular Hemoglobin Concent (test code = 786-4) 32.9 31-35 [facility] CenterRDW QugBx-Ypy2421-14-24 05:30:00* Test Item Value Reference Range Interpretation Comments Red Cell Distribution Width (test code = 05608-6) 12.1 11.7 -14.4 [facility] CenterAutomated blood platelet count (count/volume)2020-04-01 05:30:00* Test Item Value Reference Range Interpretation Comments Platelet Count (test code = 777-3) 267 140-360 [facility] CenterAutomated blood segmented neutrophil count as percentage of total jqrxrnqqsv7626-70-38 05:30:00* Test Item Value Reference Range Interpretation Comments Neutrophils (%) (Auto) (test code = 62761-6) 38.9 38.7-80.0 [facility] CenterAutomated blood lymphocyte count as percentage ot total kkxfroukml7162-71-68 05:30:00* Test Item Value Reference Range Interpretation Comments Lymphocytes (%) (Auto) (test code = 736-9) 47.4 18.0-39.1 [facility] CenterAutomated blood monocyte count as percentage of total qqegsfpmms1276-64-36 05:30:00* Test Item Value Reference Range Interpretation Comments Monocytes (%) (Auto) (test code = 5905-5) 10.4 4.4-11.3 [facility] CenterAutomated blood eosinophil count as percentage of total njixohedfl8152-41-09 05:30:00* Test Item Value Reference Range Interpretation Comments Eosinophils (%) (Auto) (test code = 713-8) 2.6 0.0-6.0 [facility] CenterAutomated blood basophil count as percentage of total tuapugnppn4929-68-88 05:30:00* Test Item Value Reference Range Interpretation Comments Basophils (%) (Auto) (test code = 706-2) 0.5 0.0-1.0 [facility] CenterFluoroscopic procedure less than one hour ueennlrd3054-51-07 05:30:00* Test Item Value Reference Range Interpretation Comments IM GRANULOCYTES % (test code = IM GRANULOCYTES %) 0.2 0.0- 1.0 [facility] CenterAutomated blood neutrophil count 2020-04-01 05:30:00* Test Item Value Reference Range Interpretation Comments Neutrophils # (Auto) (test code = 751-8) 2.3 2.1-6.9 [facility] CenterBlood lymphocytes count (number/volume) 2020-04-01 05:30:00* Test Item Value Reference Range Interpretation Comments Lymphocytes # (Auto) (test code = 19265-9) 2.8 1.0-3.2 [facility] CenterBlood monocytes automated count (number/volume)2020-04-01 05:30:00* Test Item Value Reference Range Interpretation Comments Monocytes # (Auto) (test code = 742-7) 0.6 0.2-0.8 [facility] CenterAutomated blood eosinophil count 2020-04-01 05:30:00* Test Item Value Reference Range Interpretation Comments Eosinophils # (Auto) (test code = 711-2) 0.2 0.0-0.4 [facility] CenterAutomated blood basophil count (count/volume)2020-04-01 05:30:00* Test Item Value Reference Range Interpretation Comments Basophils # (Auto) (test code = 704-7) 0.0 0.0-0.1 [facility] CenterFluoroscopic procedure less than one hour bgwndzgd8700-49-89 05:30:00* Test Item Value Reference Range Interpretation Comments Absolute Immature Granulocyte (auto (mónica t code = Absolute Immature Granulocyte (auto) 0.01 0-0.1 [facility] plasma sodium measurement (moles/volume)2020-04-01 05:30:00* Test Item Value Reference Range Interpretation Comments Sodium Level (test code = 2951-2) 139 136-145 [facility]anoerum or plasma potassium measurement (moles/volume)2020-04-01 05:30:00* Test Item Value Reference Range Interpretation Comments Potassium Level (test code = 2823-3) 3.6 3.5-5.1 [facility]anoerum or plasma chloride measurement (moles/volume)2020-04-01 05:30:00* Test Item Value Reference Range Interpretation Comments Chloride Level (test code = 2075-0) 112 98-107 [facility]anoerum or plasma carbon dioxide, total measurement (moles/volume)2020-04-01 05:30:00* Test Item Value Reference Range Interpretation Comments Carbon Dioxide Level (test code = 2028-9) 19 22-29 [facility]anoerum or plasma anion bbq2714-24-83 05:30:00* Test Item Value Reference Range Interpretation Comments Anion Gap (test code = 91139-1) 11.6 8-16 [facility]anoerum or plasma urea nitrogen measurement (mass/volume)2020-04-01 05:30:00* Test Item Value Reference Range Interpretation Comments Blood Urea Nitrogen (test code = 3094-0) 10 7-26 [facility]ano[facility]um or plasma creatinine measurement (mass/volume)2020-04-01 05:30:00* Test Item Value Reference Range Interpretation Comments Creatinine (test code = 2160-0) 0.69 0.57-1.11 [facility]ano[facility]um or plasma urea nitrogen/creatinine mass lknbx8431-47-79 05:30:00* Test Item Value Reference Range Interpretation Comments BUN/Creatinine Ratio (test code = 3097-3) 14 -25 [facility] CenterEstimated glomerular filtration rate (GFR) ulvhqaoxbsbtq3636-77-04 05:30:00* Test Item Value Reference Range Interpretation Comments Estimat Glomerular Filtration Rate (test code = 032235331) > 60 >60 Ranges were taken from the National Kidney Disease Education Program and the Irasema counts include [facility] literature.Reference ranges:60 or greater: Bkbsuw18-54 ( for 3 consecutive months): Chronic kidney disease 15 or less: Kidney failurePermian Regional Medical CenterGlucose yktzcjmdmix2162-84-67 05:30:00* Test Item Value Reference Range Interpretation Comments Glucose Level (test code = OEW4199) 104 74-118 [facility]anoerum or plasma calcium measurement (mass/volume)2020-04-01 05:30:00* Test Item Value Reference Range Interpretation Comments Calcium Level (test code = 83364-2) 8.0 8.4-10.2 [facility]anoerum or plasma total bilirubin measurement (mass/volume)2020-04-01 05:30:00* Test Item Value Reference Range Interpretation Comments Total Bilirubin (test code = 1975-2) 0.4 0.2-1.2 [facility] CenterFluoroscopic procedure less than one hour ubihzlkl2332-59-05 05:30:00* Test Item Value Reference Range Interpretation Comments Aspartate Amino Transf (AST/SGOT) (test code = Aspartate Amino Transf (AST/SGOT)) 16 5-34 [facility]anoerum or plasma alanine aminotransferase measurement (enzymatic activity/volume)2020-04-01 05:30:00* Test Item Value Reference Range Interpretation Comments Alanine Aminotransferase (ALT/SGPT) (test code = 1742-6) 9 0-55 [facility]anoerum or plasma protein measurement (mass/volume)2020-04-01 05:30:00* Test Item Value Reference Range Interpretation Comments Total Protein (test code = 2885-2) 6.3 6.5-8.1 [facility]ano[facility]um or plasma albumin measurement (mass/volume)2020-04-01 05:30:00* Test Item Value Reference Range Interpretation Comments Albumin (test code = 1751-7) 3.7 3.5-5.0 [facility] CenterPlasma globulin measurement (mass/volume) 2020-04-01 05:30:00* Test Item Value Reference Range Interpretation Comments Globulin (test code = 67422-8) 2.6 2.3-3.5 [facility]ano[facility]um or plasma albumin/globulin mass pjtrl9235-93-42 05:30:00* Test Item Value Reference Range Interpretation Comments Albumin/Globulin Ratio (test code = 1759-0) 1.4 0.8-2.0 [facility]um or plasma alkaline phosphatase measurement (enzymatic activity/volume)2020-04-01 05:30:00* Test Item Value Reference Range Interpretation Comments Alkaline Phosphatase (test code = 6768-6) 100 40-150 [facility]anoerum or plasma triglyceride measurement (mass/volume)2020-04-01 05:30:00* Test Item Value Reference Range Interpretation Comments Triglycerides Level (test code = 2571-8) 156 0-149 [facility]anoerum or plasma cholesterol measurement (mass/volume)2020-04-01 05:30:00* Test Item Value Reference Range Interpretation Comments Cholesterol Level (test code = 2093-3) 116 0-199 Less than 200 mg/dL Low Hpqg234 - 239 mg/dL Borderline Ztwd391 m g/dl and greater High Risk [facility]ano[facility]um or plasma cholesterol in LDL measurement (mass/volume) 2020-04-01 05:30:00* Test Item Value Reference Range Interpretation Comments LDL Cholesterol (test code = 2089-1) 47 60-130 [facility]ano[facility]um or plasma cholesterol in HDL measurement (mass/volume)2020-04-01 05:30:00* Test Item Value Reference Range Interpretation Comments HDL Cholesterol (test code = 2085-9) 38 40-60 [facility]ano[facility]um or plasma total cholesterol/cholesterol in HDL mass bjzri6894-46-09 05:30:00* Test Item Value Reference Range Interpretation Comments Cholesterol/HDL Ratio (test code = 9830-1) 3.1 3.0-3.6 [facility] CenterCT CHEST [id number] 20:00:00 [facility] [address] [place] [address] Patient Name: SIMON STEPHENS MR #: [id number] : 1980 Age/Sex: 39/F Req #: [id number] Adm Physician: CARLOS SANDRA MD Ordered by: FLOYD SHARP MD Report #: [id number] Location: [facility]/Bed: [place] [address] Procedure: [id number] CT/CT CHEST W Exam Date: 03/31/20 Exam [...] (PT) in platelet poor plasma by coagulation wwkpu8234-13-84 16:02:00* Test Item Value Reference Range Interpretation Comments Prothrombin Time (test code = 5902-2) 12.9 11.9-14.5 [facility] CenterINR in Platelet poor plasma by Coagulation wtxbd3760-21-53 16:02:00* Test Item Value Reference Range Interpretation Comments Prothromb Time International Ratio (test code = 6301-6) 0.93 Oral Anticoagulant Therapy INR Values:1. Low Intensity Therapy 1.5 - 2.02 . Moderate Intensity Therapy 2.0 - 3.03. High Intensity Therapy(1) 2.5 - 3. 54. High Intensity Therapy(2) 3.0 - 4.05. Panic Value INR > 5.0 [facility] CenterActivated partial thromboplastin time (aPTT) in platelet poor plasma by coagulation qxaua5335-55-16 16:02:00* Test Item Value Reference Range Interpretation Comments Activated Partial Thromboplast Time (test code = 46036-4) 27.4 23.8-35.5 [facility] CenterFibrin D-dimer DDU measurement in platelet poor plasma (mass/volume)2020-03-31 16:02:00* Test Item Value Reference Range Interpretation Comments D-Dimer Quantitative (PE/DVT) (test code = 98353-2) 0.53 0. 00-0.45 As with all in vitro diagnostic tests, the test results should be interpreted by the physician in conjunction with clinical findings and other test results.Test results are reported in NEW D-dimer units(ug/mLFEU).[facility] CenterUrine color sydxjqooqrcle7917-00-68 16:02:00* Test Item Value Reference Range Interpretation Comments Urine Color (test code = 5778-6) YELLOW YELLOW [facility] CenterUrine ifrihlc4845-77-38 16:02:00* Test Item Value Reference Range Interpretation Comments Urine Clarity (test code = 53853-9) SL CLOUDY CLEAR [facility] Planopecific gravity of Urine by Test strip 2020-03-31 16:02:00* Test Item Value Reference Range Interpretation Comments Urine Specific Lilly (test code = 5811-5) 1.025 1.010-1.02 5 [facility] CenterUrine pH measurement by automated test oexug7608-64-39 16:02:00* Test Item Value Reference Range Interpretation Comments Urine pH (test code = 08146-0) 5.5 5-7 [facility] CenterUrine leukocyte esterase detection by xotzzdin6357-62-33 16:02:00* Test Item Value Reference Range Interpretation Comments Urine Leukocyte Esterase (test code = 5799-2) NEGATIVE NEGATIVE [facility] CenterUrine nitrite xvauibxjf8652-78-81 16:02:00* Test Item Value Reference Range Interpretation Comments Urine Nitrite (test code = 79558-2) NEGATIVE NEGATIVE [facility] CenterUrine protein measurement by test strip (mass/volume)2020-03-31 16:02:00* Test Item Value Reference Range Interpretation Comments Urine Protein (test code = 5804-0) TRACE NEGATIVE [facility] CenterUrine glucose fuskletpd2960-00-68 16:02:00* Test Item Value Reference Range Interpretation Comments Urine Glucose (UA) (test code = 2349-9) NEGATIVE NEGATIVE [facility] CenterUrine ketones detection by automated test wawwv6290-85-32 16:02:00* Test Item Value Reference Range Interpretation Comments Urine Ketones (test code = 04505-5) TRACE NEGATIVE [facility] CenterUrine opiates screening mlqt8360-60-25 16:02:00* Test Item Value Reference Range Interpretation Comments Urine Opiates Screen (test code = 72228-1) POSITIVE NEGATIVE ALL TESTS PERFORMED MANUALLY ON [employer]Touch TOX/SEE TEST This test provides only a sc reen. Positive results should be repeated by a confirmatory test.[facility] CenterBarbiturates screen, tuexh9838-79-01 16:02:00* Test Item Value Reference Range Interpretation Comments Urine Barbiturates Screen (test code = 188118942) NEGATIVE NEGA TIVE [facility] CenterUrine phencyclidine detection by screening uccrko4882-72-71 16:02:00* Test Item Value Reference Range Interpretation Comments Urine Phencyclidine Screen (test code = 97495-1) NEGATIVE NEGAT RADHA [facility] CenterUrine amphetamines detection by screen method > 1000 ng/hN6419-95-84 16:02:00* Test Item Value Reference Range Interpretation Comments Urine Amphetamines Screen (test code = 48499-8) POSITIVE NEGATI VE This test provides only a screen. Positive results should be repeated by a confi rmatory test.[facility] CenterFluoroscopic procedure less than one hour ruoauzex4545-03-85 16:02:00* Test Item Value Reference Range Interpretation Comments Urine Methamphetamines Screen (test code = Urine Metha mphetamines Screen) POSITIVE NEGATIVE This test provides only a screen. Positive results should be repeated by a confi rmatory test.[facility] CenterUrine benzodiazepines detection by screening dzrybs8248-13-84 16:02:00* Test Item Value Reference Range Interpretation Comments Urine Benzodiazepines Screen (test code = 70538-0) POSITIVE NEG ATIVE This test provides only a screen. Positive results should be repeated by a confi rmatory test.[facility] CenterUrine cocaine measurement (mass/volume)2020-03-31 16:02:00* Test Item Value Reference Range Interpretation Comments Urine Cocaine Screen (test code = 3398-5) NEGATIVE NEGATIVE [facility] CenterUrine cannabinoids detection by screening ocekqb1098-14-17 16:02:00* Test Item Value Reference Range Interpretation Comments Urine Cannabinoids Screen (test code = 97660-5) NEGATIVE NEGATI VE THESE RESULTS ARE FOR MEDICAL TREATMENT ONLYTHIS REPORT CONTAINS UNCONFIR MED SCREENING RESULTS*POSITIVE RESULTS WILL BE CONFIRMED BY REFERENCE LAB UPON R EQUEST CUT-OFFDRUG CLASS CONCENTRATION ng/mLAmphetamines 1000Methamphetamines 1000Cocaine 300Opiate 300Phencyc lidine 25Cannabinoid 50Barbiturates 300Benzodiazepine 300Methadone 300[facility] CenterUrine methadone ojbksq3601-96-99 16:02:00* Test Item Value Reference Range Interpretation Comments Urine Methadone Screen (test code = 89103-9) NEGATIVE NEGATIVE THESE RESULTS ARE FOR MEDICAL TREATMENT ONLYTHIS REPORT CONTAINS UNCONFIR MED SCREENING RESULTS*POSITIVE RESULTS WILL BE CONFIRMED BY REFERENCE LAB UPON R EQUEST CUT-OFFDRUG CLASS CONCENTRATION ng/mLAmphetamines 1000Methamphetamines 1000Cocaine Metabolite 300Opiate 300Phencyc lidine 25Cannabinoid 50Barbiturates 300Benzodiazepine 300Methadone 300[facility] CenterUrine urobilinogen measurement by test strip (mass/volume)2020-03-31 16:02:00* Test Item Value Reference Range Interpretation Comments Urine Urobilinogen (test code = 60649-3) 0.2 0.2-1 [facility] CenterUrine total bilirubin measurement (mass/volume)2020-03-31 16:02:00* Test Item Value Reference Range Interpretation Comments Urine Bilirubin (test code = 1978-6) SMALL NEGATIVE [facility] CenterUrine erythrocytes cmqorgnon2418-01-84 16:02:00* Test Item Value Reference Range Interpretation Comments Urine Blood (test code = 35652-8) NEGATIVE NEGATIVE [facility] CenterAutomated urine sediment leukocyte count by microscopy (number/high power field)2020-03-31 16:02:00* Test Item Value Reference Range Interpretation Comments Urine WBC (test code = 5821-4) 0-5 0-5 [facility] CenterErythrocytes detection in urine sediment by light wqcgogjojp3842-57-80 16:02:00* Test Item Value Reference Range Interpretation Comments Urine RBC (test code = 94679-8) 0-5 0-5 [facility] CenterBacteria detection in urine sediment by light krfqggveyk2432-01-03 16:02:00* Test Item Value Reference Range Interpretation Comments Urine Bacteria (test code = 26695-3) RARE NONE [facility] CenterEpithelial cells detection in urine sediment by light qdhiycaqje1422-83-89 16:02:00* Test Item Value Reference Range Interpretation Comments Urine Epithelial Cells (test code = 81292-2) FEW NONE [facility] CenterHyaline casts detection in urine sediment by light tqpwvuewop2345-84-24 16:02:00* Test Item Value Reference Range Interpretation Comments Urine Hyaline Casts (test code = 00072-7) 2-5 0-1 [facility] CenterMucus detection in urine sediment by light mjjoltsjcp8755-92-12 16:02:00* Test Item Value Reference Range Interpretation Comments Urine Mucus (test code = 8247-9) FEW RARE [facility] magnesium measurement (mass/volume)2020-03-31 16:02:00* Test Item Value Reference Range Interpretation Comments Magnesium Level (test code = 26102-8) 1.4 1.3-2.1 [facility] acetaminophen measurement by screening method (mass/volume)2020-03-31 16:02:00* Test Item Value Reference Range Interpretation Comments Acetaminophen Level (test code = 21380-8) < 3.0 10-30 [facility] plasma choriogonadotropin ( test) [id number] 16:02:00* Test Item Value Reference Range Interpretation Comments Human Chorionic Gonadotropin, Qual (test code = 2118-8) NEGATIVE NEGATIVE [facility] ethanol measurement (mass/volume)2020-03-31 16:02:00* Test Item Value Reference Range Interpretation Comments Ethyl Alcohol Level (test code = 5643-2) 98.9 0.0-10.0 [facility] plasma salicylates measurement (mass/volume)2020-03-31 16:02:00* Test Item Value Reference Range Interpretation Comments Salicylates Level (test code = 4024-6) < 5.0 0-30 [facility] [id number] 08:21:00 [facility] [address] [place] [address] Patient Name: SIMON STEPHENS MR #: [id number] : 1980 Age/Sex: 39/F Req #: [id number] Adm Physician: Ordered by: BÁRBARA BUSTILLOS MD Report #: [id number] Location: [facility] Room/Bed: Procedure: HOPD/CT C HEST W/O CONTRAST-HOPD [...] 03/31/20827 COPY TO: BÁRBARA BUSTILLOS MD CT MAX/[facility]PARPRESC[facility]ENTER[facility] SIN [id number] 08:14:[address] [place] [address] Patient Name: SIMON STEPHENS MR #: [id number] : 1980 Age/Sex: 39/F Req #: [id number] Adm Physician: Ordered by: BÁRBARA BUSTILLOS MD Report #: [id number] Location: [facility] Room/Bed: Procedure: [id number] HOPD/CT M AX/FACPARANASA SIN WO-HOPD Exam Date: [...] COPY TO: BÁRBARA BUSTILLOS MD CT BRAIN [id number] 08:14:00 [place] [address] Patient Name: SIMON STEPHENS MR #: [id number] : 1980 Age/Sex: 39/F Req #: [id number] Adm Physician: Ordered by: BÁRBARA BUSTILLOS MD Report #: [id number] Location: [facility]/Bed: Procedure: [id number] [facility] Ex[facility] Date: 03/31/20 Exam Time: 0815 [...] acute abnormalities 2. [facility]: 1. Midline chin laceration with regional soft tissue swelling. 2. No retained hyperdense foreign body or fra cture. Signed by: Dr. Ander Hagan M.D. on 03/31/2020 8:30 AM Dicta michael By: ANDER HAGAN MD 9 COPY TO: Narciso BUSTILLOS MD [id number] 14:45:00 RUN DATE: 02/10/20 [employer] PAGE 1 RUN TIME: 1445 Specimen Inqui ry RUN USER: INTERFACE PATIENT: SIMON STEPHENS ACCT #: [id number] LOC: PATRICIA U #: [id number] AGE/SX: 39/F ROOM: RE02/06/20REG DR: Marnie West MD : [birth year] BED: DIS: STATUS: [facility] TLOC: SPEC #: [id number] RECD: 02/09/20 STATUS: LIBERTY GOMES #: [id number] UCHE: 02/06/20- SUBM DR: Marnie West MD ENTERED: 02/09/20 SP TYPE: BREAST OTHR DR: Carlos Sandra MD ORDERED: GROSS COPIES TO: Carlos Sandra MD [address] [facility] [address] [place] [address] [email or web address] Marnie Redmond MD [address] [facility] [address] [place] [address] PROCEDURES: GROSS (02/10/20-1236) TISSUES: 1. LEFT BREAST, [...] BREAST PARENCHYMA NEGATIVE FOR MALIGNANCY RRB/hortensia D 21350y3 CONTINUED ON NEXT PAG E RUN DATE: 02/10/20 [facility] PAGE 2 RUN TIME: 1445 Specimen Inquiry RUN USER: INTERFACE SPEC #: [id number] PATIENT: GIUSEPPE STEPHENS HAIDER CATHERINE #[id number] (Continued) [facility] Specimen (1) is received in formalin, labeled [...] through the tissue shows lobulated fatty tissue. Environmental Services Coordinator portions of tissue are submitted as (1A-1B). [...] lated fatty tissue with no focal lesions. Environmental Services Coordinator tissue is submitted as (2A-2B). GROSS PERFORMED AT [facility] [address] [place] [address] (P) MICROSCOPIC All of the stains, including any controls performe d, stain appropriately. MICROSCOPIC PERFORMED AT [facility] [address] [place] [address] (P) PERFORMING SITE Diagnosis performed at: [facility] [address] [address] CONTINUE D ON NEXT PAGE RUN DATE: 02/10/20 [employer] PAGE 3 RUN TIME: 1445 Specimen Inquiry RUN USER: INTERFACE SPEC #: [id number] ANTONELLA ENT: SIMON STEPHENS #[id number] ([facility]) PERFORMING SITE ([facility]) [phone] Signed SIGNATURE ON FILE Alex Page MD 02/10/20 1445 --- --------- END OF REPORT [facility]:2020-02-09 09:33:00* Test Item Value Reference Range Interpretation Comments [facility]: (test code = MISCCHEM) SEE REPORT TEST RESULT UNITSNicotine and Metabolite, Ur Qn Nicotine* <10.0 ng/mL Nicotine levels greater than 100.0 are consistent with the use of tobacco or tobacco cessation products. Cotinine* <10.0 ng/mL Cotinine levels greater than 200.0 are consistent with the use of tobacco or tobacco cessation products. Test performed at: [facility] [address] [place] [address] TESTING IN PROGRESS; [facility]# [id number] ; JosefaLAB.LAG 02/05/20 0630 SENT 20ML URINE, REFURINE COTININE L EVELV.LAB.LAMONTE 01/30/20 1228HCG SERUM [id number] 19:25:00* Test Item Value Reference Range Interpretation Comments HCG SERUM QUAL (test code = HCGQL) NEGATIVE NEGATIVE This HCGQL test is NOT applicable for MALE patients.Check with nurse about probable order error.If Tumor Marker Test needed, nurse should order test "HCGTU"(Test #550.13171) COMPREHENSIVE METABOLIC [id number] 16:01:00* Test Item Value Reference Range Interpretation [...] due to change in reagent. COMPREHENSIVE METABOLIC [id number] 15:49:00* Test Item Value Reference Range Interpretation [...] code = ALKP) IUnit/L 45-117 CBC W/AUTO [id number] 14:52:00* Test Item Value Reference Range Interpretation [...] = MDIFF) NO COVID 19 Asymptomatic IH [id number] 14:50:00* Test Item Value Reference Range Interpretation Comments COVID 19 Asymptomatic IH AG (test code = COVNONPUIAG) NEGATIVE BREAST ULTRASOUND [id number] 17:01:02 - DIAG MAMM BILATERAL CHRIS CAD DIGITALBILATERAL DIGITAL DIAGNOSTIC MAMMOGRAM 3D/2D WITH CAD: 03/13/2019CLINICAL: Follow up to previous exam. Digital breast tomosynthesis was performed in addition to routine CC and MLO views. Current mammographic images were evaluated by either a [employer] M-Vu or a [employer] ImageChecker CAD (computer aided detection system). Comparison is made to exam dated 06/14/2017 mammogram - [facility]. The tissue of both breasts [...] exam dated 06/14/2017 mammog richard - [facility]. Real-time ultrasound of both breasts [...] in 1 year.Monet Geronimo M.D. dm/:03/13/2019 17:01:02 Tour Driver: Hali OWEN, [facility] sent: BIRADS 1-2 Combo FU Letter Mammogram BI-RADS: 0 Indete rminate Ultrasound BI-RADS: 1 NegativeDIAG MAMM BILATERAL CHRIS CAD DIGITAL 2019-03-13 17:01:02 - DIAG MAMM BILATERAL CHRIS CAD DIGITALBILATERAL DIGITAL DIAGNOSTIC MAMMOGRAM 3D/2D WITH CAD: 03/13/2019CLINICAL: Follow up to previous exam. Digital breast tomosynthesis was performed in addition to routine CC and MLO views. Current mammographic images were evaluated by either a [employer] M-Vu or a [employer] ImageChecker CAD (computer aided detection system). Comparison is made to exam dated 06/14/2017 mammogram - [facility]-. The tissue of both breasts [...] to exam dated 06/14/2017 mammogram - [facility] Real-time ultrasound of both breasts [...] in 1 year.Monet Geronimo M.D. dm/:03/13/2019 17:01:02 Tour Driver: Hali OWEN, [facility] sent: BIRADS 1-2 Combo FU Letter Mammogram BI-RADS: 0 Indete rminate Ultrasound BI-RADS: 1 NegativeCT BRAIN [id number] 12:15:00 [facility] [address] [place] [address] Patient Name: SIMON STEPHENS MR #: [id number] : Age/Sex: 37/F Req #: [id number] Adm Physician: Ordered by: GRECIA JOSEPH MD Report #: [id number] Location: [facility] Room/Be d: Procedure: [id number] HOPD/CT BRAIN WO-HOPD Exam D ate: Exam [...] TO: GRECIA JOSEPH MD CT ABD/PEL WITH [id number] 08:57:00 [place] [address] Patient Name: SIMON TSEPHENS MR #: [id number] : 1980 Age/Sex: 37/F Req #: [id number] Adm Physician: Ordered by: MARGA CAMPBELL MD Report #: [id number] Location: [facility] Room /Bed: Procedure: [id number] HOPD/CT ABD/PEL WITH CONTR AST-HOPD Exam Date: [...]
== END 2020-04-01 17:50 | disposition left against medical advice (07) ==
LOC: ER 16:00 → ERHOLD 18:52 → MED/SURG2 04-01 15:35 → ERHOLD 04-01 16:52
PROVIDERS: ADMIT Internal Medicine; ATTEND Internal Medicine
DX: R55 Syncope and collapse (principal); T43.205A Adverse effect of unspecified antidepressants, initial encounter; Y92.9 Unspecified place or not applicable; S01.81XA Laceration without foreign body of other part of head, initial encounter; W19.XXXA Unspecified fall, initial encounter; F10.10 Alcohol abuse, uncomplicated; S29.8XXA Other specified injuries of thorax, initial encounter; Z11.59 Encounter for screening for other viral diseases
CPT/HCPCS: 36415 ×2; 71260; 80053 ×2; 80061; 80307; 80320; 80329 ×2; 81001; 82550 ×2; 82553 ×2; 83735; 84484 ×2; 84702; 85025 ×2; 85379; 85610; 85730; 87086; 93005; 93306; 93880; 97161; 99284; C9113; G0378 ×2; J1885; J2060; J3411; J7030; Q9967; U0002

== ENCOUNTER 2021-07-16 | Emergency (ER) | payer SELFPAY ==
[~2021-07-16] VITALS: Ht 165.1 cm; Wt 72.6 kg
[2021-07-16] MEDS ORDERED: SODIUM CHLORIDE 0.9% 1000ML 1,000 ML IV ONE (00:15)
[2021-07-16 00:29] LABS: BASOPHILS % 0.4 % (0.0-1.0); EOSINOPHILS # (AUTO) 0.1 (0.0-0.4); EOSINOPHILS % 1.3 % (0.0-6.0); HEMATOCRIT 38.4 % (34.2-44.1); HEMOGLOBIN 12.1 g/dL (12.0-16.0); LYMPHOCYTES # (AUTO) 4.7 (1.0-3.2); LYMPHOCYTES % 43.8 % (18.0-39.1); MEAN CORPUSCULAR HEMOGLOBIN 31.3 pg (28-32); MEAN CORPUSCULAR HGB CONC 31.5 g/dL (31-35); MEAN CORPUSCULAR VOLUME 99.5 fL (81-99); MONOCYTES # (AUTO) 0.7 (0.2-0.8); MONOCYTES % 6.5 % (4.4-11.3); NEUTROPHILS # (AUTO) 5.1 (2.1-6.9); NEUTROPHILS % 47.7 % (38.7-80.0); PLATELET COUNT 308 x10e3/uL (140-360); RED BLOOD COUNT 3.86 x10e6/uL (3.6-5.1); RED CELL DISTRIBUTION WIDTH 13.3 % (11.7-14.4)
[2021-07-16 00:45] LABS: AMYLASE 50 U/L (25-125); LIPASE 21 U/L (8-78)
[2021-07-16 00:49] LABS: ALBUMIN 3.9 g/dL (3.5-5.0); ALBUMIN/GLOBULIN RATIO 1.2 (0.8-2.0)
[2021-07-16 00:56] LABS: CALCIUM 9.5 mg/dL (8.4-10.2); CREATININE, SERUM 0.79 mg/dL (0.57-1.11)
== END 2021-07-16 01:15 | disposition home or self-care (01) ==
LOC: ER 00:06
DX: K59.00 Constipation, unspecified (principal)
CPT/HCPCS: 36415; 74018; 80053; 82150; 83690; 84702; 85025; 99284; J7030